=== PATIENT | male | born 1950 | race Caucasian/White ===

== ENCOUNTER → 2019-02-12 08:07 | Outpatient (CLI) | payer MEDICARE, OTHER, SELFPAY ==
[2019-02-12 08:58] LABS: Add Manual Diff / Slide Review NO; Basophils Absolute Auto 100 /uL (0-100); Eosinophils Absolute Auto 200 /uL (0-450); Hematocrit 44.7 % (41-53); Hemoglobin 15.4 g/dL (13.5-17.5); Lymphocytes Absolute Auto 1400 /uL (1100-4500); Lymphocytes Percent Auto 26.7 % (25-40); Mean Corpuscular HGB Conc 34.4 % (30-36); Mean Corpuscular Hemoglobin 29.8 PG (26-34); Mean Corpuscular Volume 86.5 fL (80-100); Monocytes Absolute Auto 700 /uL (0-900); Monocytes Percent Auto 12.4 % (3-14); Neutrophils Absolute Auto 3100 /uL (1500-7000); Neutrophils Percent Auto 56.9 % (50-75); Platelet Count 231 X10^3/uL (150-400); Red Blood Cell Count 5.17 X10^6/uL (4.5-5.9); Red Cell Distribution Width 13.4 % (11.6-14.8); White Blood Cell Count 5.4 X10^3/uL (4.5-11.0)
[2019-02-12 09:07] LABS: Alanine Aminotransferase 24 IU/L (21-72); Albumin 4.4 g/dL (3.5-5.0); Albumin Globulin Ratio 1.6 (1.0-2.8); Alkaline Phosphatase 93 U/L (38-126); Aspartate Aminotransferase 24 IU/L (17-59); BUN Creatinine Ratio 18.9 (6-22); Bilirubin Total 0.9 mg/dL (0.2-1.3); Blood Urea Nitrogen 17 mg/dL (9-20); Carbon Dioxide 27 mmol/L (22-32); Chloride 105 mmol/L (98-107); Cholesterol 189 mg/dL (140-199); Estimated Glomerular Filt Rate > 60.0 mL/min (>60); Globulin 2.7 g/dL (1.7-4.1); Glucose 89 mg/dL (80-110); HDL Cholesterol 33 mg/dL (40-60); HEMOLYSIS < 15 (0-50); LDL Cholesterol Calculated 142 mg/dL (<100); Potassium 4.3 mmol/L (3.4-5.1); Sodium 140 mmol/L (137-145); Total Protein 7.1 g/dL (6.3-8.2); Triglycerides 68 mg/dL (35-150)
[2019-02-12 09:36] LABS: Prostate Specific Antigen Scrn 3.51 ng/mL (0.1-4.0)
== END ==
PROVIDERS: PCP Family Medicine; Visit Provider Family Medicine
DX: E78.2 Mixed hyperlipidemia (principal); Z12.5 Encounter for screening for malignant neoplasm of prostate
CPT/HCPCS: 36415; 80053; 80061; 85025; G0103

== ENCOUNTER → 2019-09-18 15:03 | Outpatient (CLI) | payer MEDICARE, OTHER, SELFPAY ==
[2019-09-18 15:26] LABS: Hematocrit 44.3 % (41-53); Hemoglobin 15.2 g/dL (13.5-17.5); Mean Corpuscular HGB Conc 34.3 % (30-36); Mean Corpuscular Hemoglobin 29.3 PG (26-34); Mean Corpuscular Volume 85.5 fL (80-100); Platelet Count 248 X10^3/uL (150-400); Red Blood Cell Count 5.18 X10^6/uL (4.5-5.9); Red Cell Distribution Width 13.7 % (11.6-14.8)
[2019-09-18 15:37] LABS: D Dimer < 200 ng/mL (<230)
[2019-09-18 15:45] LABS: Blood Urea Nitrogen 18 mg/dL (9-20); Calcium 10.2 mg/dL (8.4-10.2); Carbon Dioxide 28 mmol/L (22-32); Chloride 105 mmol/L (98-107); Estimated Glomerular Filt Rate > 60.0 mL/min (>60); Glucose 100 mg/dL (80-110); HEMOLYSIS < 15 (0-50); Potassium 4.1 mmol/L (3.4-5.1); Sodium 140 mmol/L (137-145)
[2019-09-18 15:57] LABS: Troponin I < 0.012 ng/mL (0.01-0.034)
== END ==
PROVIDERS: Family Provider Family Medicine; PCP Family Medicine; Visit Provider Student in an Organized Health Care Education/Training Program
DX: R07.9 Chest pain, unspecified (principal)
CPT/HCPCS: 36415; 80048; 84484; 85027; 85379

== ENCOUNTER → 2019-12-13 13:26 | Outpatient (CLI) | payer MEDICARE, OTHER, SELFPAY ==
--- NOTE | 2019-12-13 13:28 | DI.RAD.S_ITS ---
PROCEDURE: XR CHEST 2V INDICATIONS: Cough 1 month TECHNIQUE: 2 views of the chest were acquired. COMPARISON: None. FINDINGS: Surgical changes and devices: None. Lungs and pleura: Lungs are clear. No pleural effusions or pneumothorax. Mediastinum: Mediastinal contours are normal. Heart size is normal. Bones and chest wall: No suspicious bony abnormalities. Soft tissues appear unremarkable. IMPRESSION: No acute pulmonary process. Dictated by: Adriana Monterroso M.D. on 12/13/2019 at 13:42 Approved by: Adriana Monterroso M.D. on 12/13/2019 at 13:59
== END ==
PROVIDERS: Family Provider Family Medicine; PCP Family Medicine; Referring Provider Family Medicine; Visit Provider Family Medicine
DX: R05 Cough (principal); Z87.891 Personal history of nicotine dependence
CPT/HCPCS: 71046

== ENCOUNTER → 2020-06-03 07:21 | Outpatient (CLI) | payer MEDICARE, OTHER, SELFPAY ==
[2020-06-03 09:06] LABS: Add Manual Diff / Slide Review NO; Basophils Absolute Auto 0 /uL (0-100); Basophils Percent Auto 0.8 % (0-2); Eosinophils Absolute Auto 100 /uL (0-450); Eosinophils Percent Auto 2.3 % (2-4); Hematocrit 46.3 % (41-53); Hemoglobin 15.8 g/dL (13.5-17.5); Lymphocytes Absolute Auto 1600 /uL (1100-4500); Lymphocytes Percent Auto 31.5 % (25-40); Mean Corpuscular HGB Conc 34.2 % (30-36); Mean Corpuscular Hemoglobin 29.4 PG (26-34); Monocytes Absolute Auto 600 /uL (0-900); Monocytes Percent Auto 11.4 % (3-14); Neutrophils Absolute Auto 2800 /uL (1500-7000); Platelet Count 239 X10^3/uL (150-400); Red Blood Cell Count 5.39 X10^6/uL (4.5-5.9); Red Cell Distribution Width 13.6 % (11.6-14.8); White Blood Cell Count 5.2 X10^3/uL (4.5-11.0)
[2020-06-03 09:26] LABS: Alanine Aminotransferase 37 IU/L (<50); Albumin 4.4 g/dL (3.5-5.0); Albumin Globulin Ratio 1.5 (1.0-2.8); Alkaline Phosphatase 83 U/L (38-126); Aspartate Aminotransferase 36 IU/L (17-59); BUN Creatinine Ratio 16.8 (6-22); Bilirubin Total 0.9 mg/dL (0.2-1.3); Blood Urea Nitrogen 17 mg/dL (9-20); Calcium 9.9 mg/dL (8.4-10.2); Carbon Dioxide 28 mmol/L (22-32); Chloride 103 mmol/L (98-107); Cholesterol 220 mg/dL (140-199); Estimated Glomerular Filt Rate > 60.0 mL/min (>60); Glucose 89 mg/dL (80-110); HDL Cholesterol 42 mg/dL (40-60); HEMOLYSIS < 15 (0-50); LDL Cholesterol Calculated 155 mg/dL (<100); Potassium 4.6 mmol/L (3.4-5.1); Sodium 140 mmol/L (137-145); Total Protein 7.4 g/dL (6.3-8.2); Triglycerides 115 mg/dL (35-150)
[2020-06-03 09:45] LABS: Thyroid Stimulating Hormone 0.877 uIU/mL (0.47-4.68)
== END ==
PROVIDERS: Family Provider Family Medicine; PCP Family Medicine; Referring Provider Family Medicine; Visit Provider Family Medicine
DX: L21.9 Seborrheic dermatitis, unspecified (principal); M19.90 Unspecified osteoarthritis, unspecified site; E78.5 Hyperlipidemia, unspecified
CPT/HCPCS: 36415; 80053; 80061; 84443; 85025

== ENCOUNTER → 2020-06-05 13:01 | Outpatient (CLI) | payer MEDICARE, OTHER, SELFPAY ==
[2020-06-08 08:10] LABS: Fecal Immunochemical Test Negative (Negative)
== END ==
PROVIDERS: Family Provider Family Medicine; PCP Family Medicine; Referring Provider Family Medicine; Visit Provider Family Medicine
DX: L21.9 Seborrheic dermatitis, unspecified (principal); M19.90 Unspecified osteoarthritis, unspecified site
CPT/HCPCS: 82274

== ENCOUNTER → 2020-06-09 08:32 | Outpatient (CLI) | payer MEDICARE, OTHER, SELFPAY | PROVIDERS: Family Provider Family Medicine; PCP Family Medicine; Referring Provider Family Medicine; Visit Provider Family Medicine | DX: Z12.5 Encounter for screening for malignant neoplasm of prostate (principal) | CPT/HCPCS: 36415; G0103 ==

== ENCOUNTER → 2021-06-07 07:33 | Outpatient (CLI) | payer MEDICARE, OTHER, SELFPAY ==
[2021-06-07 08:26] LABS: Add Manual Diff / Slide Review NO; Basophils Absolute Auto 100 /uL (0-100); Basophils Percent Auto 1.2 % (0-2); Eosinophils Absolute Auto 200 /uL (0-450); Eosinophils Percent Auto 4.4 % (2-4); Hemoglobin 15.8 g/dL (13.5-17.5); Lymphocytes Absolute Auto 1900 /uL (1100-4500); Lymphocytes Percent Auto 37.4 % (25-40); Mean Corpuscular HGB Conc 33.6 % (30-36); Mean Corpuscular Hemoglobin 29.7 PG (26-34); Mean Corpuscular Volume 88.3 fL (80-100); Monocytes Absolute Auto 500 /uL (0-900); Monocytes Percent Auto 10.5 % (3-14); Neutrophils Absolute Auto 2300 /uL (1500-7000); Neutrophils Percent Auto 46.5 % (50-75); Platelet Count 226 X10^3/uL (150-400); Red Blood Cell Count 5.33 X10^6/uL (4.5-5.9); Red Cell Distribution Width 14.1 % (11.6-14.8)
[2021-06-07 09:05] LABS: Alanine Aminotransferase 53 IU/L (<50); Albumin 4.5 g/dL (3.5-5.0); Albumin Globulin Ratio 1.6 (1.0-2.8); Alkaline Phosphatase 64 U/L (38-126); Aspartate Aminotransferase 39 IU/L (17-59); BUN Creatinine Ratio 22.1 (6-22); Bilirubin Total 0.6 mg/dL (0.2-1.3); Blood Urea Nitrogen 21 mg/dL (9-20); Calcium 9.9 mg/dL (8.4-10.2); Carbon Dioxide 28 mmol/L (22-32); Chloride 106 mmol/L (98-107); Cholesterol 233 mg/dL (140-199); Estimated Glomerular Filt Rate > 60.0 mL/min (>60); Globulin 2.8 g/dL (1.7-4.1); Glucose 100 mg/dL (80-110); HDL Cholesterol 48 mg/dL (40-60); HEMOLYSIS < 15 (0-50); LDL Cholesterol Calculated 168 mg/dL (<100); Potassium 4.8 mmol/L (3.4-5.1); Sodium 140 mmol/L (137-145); Total Protein 7.3 g/dL (6.3-8.2); Triglycerides 83 mg/dL (35-150)
[2021-06-07 09:27] LABS: TSH w/ Reflex to FT4 1.17 uIU/mL (0.47-4.68)
[2021-06-07 09:28] LABS: Prostate Specific Antigen Scrn 3.67 ng/mL (0.1-4.0)
[2021-06-08 10:29] LABS: Fecal Immunochemical Test Negative (Negative)
== END ==
PROVIDERS: Family Provider Family Medicine; PCP Family Medicine; Referring Provider Family Medicine; Visit Provider Family Medicine
DX: E78.2 Mixed hyperlipidemia (principal); Z12.5 Encounter for screening for malignant neoplasm of prostate; Z13.29 Encounter for screening for other suspected endocrine disorder; Z12.11 Encounter for screening for malignant neoplasm of colon
CPT/HCPCS: 36415; 80053; 80061; 82274; 84443; 85025; G0103

== ENCOUNTER → 2021-06-16 09:35 | Outpatient (CLI) | payer MEDICARE, OTHER, SELFPAY ==
--- NOTE | 2021-06-16 09:40 | DI.RAD.S_ITS ---
PROCEDURE: XR KNEE LT 3V INDICATIONS: bilateral shoulder pain and left knee pain TECHNIQUE: 3 views of the knee were acquired. COMPARISON: None. FINDINGS: Bones: No fractures or dislocations. No suspicious bony lesions. Moderate femoral-tibial joint space narrowing. Soft tissues: No joint effusion. No suspicious soft tissue calcifications. IMPRESSION: Moderate joint space narrowing without fracture or joint effusion Approved by: Chidi Millan M.D. on 06/16/2021 at 10:57
--- NOTE | 2021-06-16 09:40 | DI.RAD.S_ITS ---
PROCEDURE: XR SHOULDER LT MIN 2V INDICATIONS: bilateral shoulder pain and left knee pain TECHNIQUE: 3 views of the shoulder were acquired. COMPARISON: None. FINDINGS: Bones: No fractures or dislocations. No suspicious bony lesions. Visualized ribs appear intact. Soft tissues: No suspicious soft tissue calcifications. IMPRESSION: Unremarkable left shoulder radiographs Approved by: Chidi Millan M.D. on 06/16/2021 at 11:00
--- NOTE | 2021-06-16 09:40 | DI.RAD.S_ITS ---
PROCEDURE: XR SHOULDER RT MIN 2V INDICATIONS: bilateral shoulder pain and left knee pain TECHNIQUE: 3 views of the shoulder were acquired. COMPARISON: None. FINDINGS: Bones: No fractures or dislocations. No suspicious bony lesions. Visualized ribs appear intact. Soft tissues: No suspicious soft tissue calcifications. IMPRESSION: Unremarkable right shoulder radiographs Approved by: Chidi Millan M.D. on 06/16/2021 at 11:05
== END ==
PROVIDERS: Family Provider Family Medicine; PCP Family Medicine; Referring Provider Family Medicine; Visit Provider Family Medicine
DX: M19.91 Primary osteoarthritis, unspecified site (principal); M25.511 Pain in right shoulder; M25.512 Pain in left shoulder; M25.562 Pain in left knee
CPT/HCPCS: 73030; 73562

== ENCOUNTER 2021-08-17 12:15 | Outpatient (RCR) | payer MEDICARE, OTHER, SELFPAY ==
--- NOTE | 2021-06-30 16:03 | PT.OIE ---
Current Diagnoses Pain in right shoulder (06/30/21) Pain in left shoulder (06/30/21) Past Medical History (Last Updated 06/16/21 @ 09:12 by Warner Guzman MD) Bilateral shoulder pain Hyperlipidemia Past Surgical History (Last Reviewed 08/19/20 @ 09:52 by Warner Guzman MD) History of tonsillectomy Visit Care Team Role Provider Type Warner Guzman MD Attending Provider Physician Family Provider Primary Care Provider Referring Provider Specialty: Family Practice Address: [address] [place] [address], [facility] Email: [email or web address] Physical Therapy Initial Evaluation PT-OP-A Visit Information Start: 06/28/21 14:12 Freq: Status: Active Protocol: Document 06/30/21 13:00 MB (Rec: 06/30/21 13:10 MB [id number]) Out-Patient Physical Therapy Visit Information Visit Information Visit Type Initial Evaluation Visit Note Medicare 09/29 before KX Visit Start Time 13:00 Visit Stop Time 13:34 Total Visit Minutes 34 Visit Number 1 PT-OP-B Current Condition Start: 06/28/21 14:12 Freq: Status: Active Protocol: Document 06/30/21 13:00 MB (Rec: 06/30/21 13:10 MB [id number]) Current Condition History of Current Condition Onset Date 1978 Current Complaints Pain at night and pain with some movements History of Current Condition Pt reports that in 1978, he was on his back working his triceps with free weights up to 30-40 lbs and lost control. He has had B shoulder pain on and off since that time. He never had good rehab. In the past 5-10 years, it has gotten worse. He started AROM and free weight press ups in 2019 and he got increased pain . Lifting, reaching behind his back, putting on a shirt all increase pain. The pain wakes him up at night. He has been taking Naproxen each night. It seems to work until the wee hours. When the pain wakes him up, he can put his arm up and the pain goes away so he can fall back asleep. He is having more pain in the left shoulder. He has pain in the superolateral joint area and down lateral deltoid area. He has has never had PT in the past. Pt is sleeping on his side and back. He sleeps with and dog. He has one pillow under his head. Pt denies paresthesias. Pt is concerned about restoring muscle mass as he noticed trouble stepping off a curb. Treatment Goals Patient/Caregiver Goals To decrease pain and get a exercise for arms PT-OP-C Subjective Start: 06/28/21 14:12 Freq: Status: Active Protocol: Document 06/30/21 13:00 MB (Rec: 06/30/21 13:10 MB [id number]) OP-PT Subjective Patient Comments Patient Comments See history of current condition. Patient Questionnaires Quick Dash- Upper Extremity Quick Dash UE Score 16 Quick Dash UE Impairment 1 to 19% Impaired (Score 1-19) PT-OP-J Posture/Palpation/Skin Start: 06/28/21 14:12 Freq: Status: Active Protocol: Document 06/30/21 13:00 MB (Rec: 06/30/21 16:03 MB [id number]) Posture Evaluation Comments Posture Comments Standing posture: decreased cervical lordosis, increased lower thoracic kyphosis with convexity to the left, Dowager 's hump, stiffness through pelvis, left shoulder higher than the right and pt is right handed, right iliac crest 1/2 higher than the left. PT-OP-K Range of Motion Start: 06/28/21 14:12 Freq: Status: Active Protocol: Document 06/30/21 13:00 MB (Rec: 06/30/21 16:03 MB [id number]) Cervical Spine Range of Motion Cervical Spine Active Testing Position Standing Flexion 33 Extension 24 Rotation Left 70 Rotation Right 53 Comments Pt's resting posture is with head in 4 deg right SB Shoulder Goniometric Range of Motion Shoulder Left Comments AROM B shoulder flexion and abduction approximately 140 deg PROM in supine with shoulder in 70 deg abduction is: ER 70 deg and IR 40 deg Right Comments AROM B shoulder flexion and abduction approximately 140 deg Supine ER/IR PROM with shoulder in 90/90: right is normal PT-OP-M Strength Start: 06/28/21 14:12 Freq: Status: Active Protocol: Document 06/30/21 13:00 MB (Rec: 06/30/21 16:03 MB [id number]) Shoulder Strength Shoulder Manual Muscle Testing Left External Rotation 3- Fair- Internal Rotation 5 Normal Comments Flexion and abduction deferred d/t fear of pain with MMT and active abduction. Pt is fearful/guarded about ER MMT Right External Rotation 3- Fair- Internal Rotation 5 Normal Comments Flexion and abduction deferred d/t fear of pain with MMT and active abduction. Pt is fearful/guarded about ER MMT Elbow/Forearm Strength Elbow and Forearm Manual Muscle Testing Left Flexion (C6) 5 Normal Extension (C7) 5 Normal Pronation 5 Normal Supination 4 Good Right Flexion (C6) 5 Normal Extension (C7) 5 Normal Pronation 5 Normal Supination 5 Normal Wrist Strength Wrist Manual Muscle Testing Left Flexion (C7) 4 Good Extension (C6) 4 Good Right Flexion (C7) 5 Normal Extension (C6) 5 Normal PT-OP-Q Treatments Start: 06/28/21 14:12 Freq: Status: Active Protocol: Document 06/30/21 13:00 MB (Rec: 06/30/21 15:48 MB [id number]) Self-Care/Home Management Treatment Education Patient Education Body Mechanics,Home Exercise Program,Posture Other Education PT ed pt in benefits of using towel roll for cervical support and to unweight shoulders when sleeping, ed pt in benefits of sitting upright and pillow support behind back and on lap for when he uses laptop on couch, benefits of trying his large ball for thoracic massage against the wall PT-OP-T Assessment and Plan Start: 06/28/21 14:12 Freq: Status: Active Protocol: Document 06/30/21 13:00 MB (Rec: 06/30/21 16:03 MB [id number]) Physical Therapy Assessment Rehab Potential Rehabilitation Potential Fair Evaluation Complexity Number of Personal Factors/Comorbidities 1-2 Number of Body Systems Impaired 1-2 Clinical Presentation at Evaluation Evolving Impairments Impairments Activity Tolerance,Functional Activities,Pain,Posture,ROM, Soft Tissue Mobility,Strength Other Impairments Personal factors include chronicity of symptoms ( greater than 40 years) and guarding tendencies. Goals 3 Assisted Goal (LTG) Pt will perform progressive HEP with I including postural exercises, pelvic realignment, balance, flexibility and shoulder, core and intrascapular strengthening to improve pain and strength by 08/30/21. LTG Duration 8 weeks 2 Orthopaedic Surgeon Goal (LTG) Pt will report a 50% improvement in pain, especially with sleeping pain, to improve recovery and quality of life by 08/30/21 LTG Duration 8 weeks 1 Assisted Goal (LTG) Pt will present with improved B shoulder flexion, abduction and ER strength to at least 4/ 5 with MMT to improve functional use of arms by . LTG Duration 8 weeks Assessment Summary Assessment Pt is a 70 y/o male presenting with chronic B shoulder pain greater than 40 years after a free weight injury. He presents with guarded active abduction and MMT with reports of pain with ER testing. 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 PT suspects old rotator cuff injuries and degenerative changes. He has never had physical therapy and he may really benefit from postural, pelvic alignment, flexibility and strengthening training and manual intervention. Barriers to PT include chronicity of symptoms and guarding behaviors. Physical Therapy Plan Frequency and Duration Frequency of Treatment 2x/Week Duration of Treatment 8 weeks Plan of Care Start Date 06/30/21 Plan of Care End Date 08/30/21 Therapeutic Interventions Therapeutic Interventions Aquatic Therapy,Balance Training,Canalithic Repositioning,Coordination Training,Home Exercise Program ,Joint Mobilizations,Manual Therapy,Neuromuscular Re- education,Patient/Caregiver Education,Self-Care/Home Management,Soft Tissue Mobilization,Taping, Therapeutic Activities, Therapeutic Exercises Modalities Cold Pack/Ice Massage,Hot Packs Next Visit Focus/Plan Next Note Type Treatment Note Next Visit Plan Pelvic realignment exercises, thoracic mobility exercises
--- NOTE | 2021-06-30 16:03 | PT.OPPOC ---
Physical, Occupational & Speech Therapy At [facility] Current Diagnoses Pain in right shoulder (06/30/21) Pain in left shoulder (06/30/21) Visit Care Team Role Provider Type Warner Guzman MD Attending Provider Physician Family Provider Primary Care Provider Referring Provider Specialty: Family Practice Address: [address] [place] [address], [facility] Email: [email or web address] Plan Of Care PT-OP-T Assessment and Plan Start: 06/28/21 14:12 Freq: Status: Active Protocol: Document 06/30/21 13:00 MB (Rec: 06/30/21 16:03 MB [id number]) Physical Therapy Assessment Rehab Potential Rehabilitation Potential Fair Evaluation Complexity Number of Personal Factors/Comorbidities 1-2 Number of Body Systems Impaired 1-2 Clinical Presentation at Evaluation Evolving Impairments Impairments Activity Tolerance,Functional Activities,Pain,Posture,ROM, Soft Tissue Mobility,Strength Other Impairments Personal factors include chronicity of symptoms ( greater than 40 years) and guarding tendencies. Goals 3 Senior Care Goal (LTG) Pt will perform progressive HEP with I including postural exercises, pelvic realignment, balance, flexibility and shoulder, core and intrascapular strengthening to improve pain and strength by 08/30/21. LTG Duration 8 weeks 2 Process Inspector Goal (LTG) Pt will report a 50% improvement in pain, especially with sleeping pain, to improve recovery and quality of life by 08/30/21 LTG Duration 8 weeks 1 Process Inspector Goal (LTG) Pt will present with improved B shoulder flexion, abduction and ER strength to at least 4/ 5 with MMT to improve functional use of arms by . LTG Duration 8 weeks Assessment Summary Assessment Pt is a 70 y/o male presenting with chronic B shoulder pain greater than 40 years after a free weight injury. He presents with guarded active abduction and MMT with reports of pain with ER testing. 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 PT suspects old rotator cuff injuries and degenerative changes. He has never had physical therapy and he may really benefit from postural, pelvic alignment, flexibility and strengthening training and manual intervention. Barriers to PT include chronicity of symptoms and guarding behaviors. Physical Therapy Plan Frequency and Duration Frequency of Treatment 2x/Week Duration of Treatment 8 weeks Plan of Care Start Date 06/30/21 Plan of Care End Date 08/30/21 Therapeutic Interventions Therapeutic Interventions Aquatic Therapy,Balance Training,Canalithic Repositioning,Coordination Training,Home Exercise Program ,Joint Mobilizations,Manual Therapy,Neuromuscular Re- education,Patient/Caregiver Education,Self-Care/Home Management,Soft Tissue Mobilization,Taping, Therapeutic Activities, Therapeutic Exercises Modalities Cold Pack/Ice Massage,Hot Packs Next Visit Focus/Plan Next Note Type Treatment Note Next Visit Plan Pelvic realignment exercises, thoracic mobility exercises Plan of Care Dates Plan of Care Start Date 06/30/21 Plan of Care End Date 08/30/21 Electronically Signed by: Elisa Roca, PT 06/30/21 [id number] Please Sign and Return: I have reviewed this Plan of Care and certify that the skilled therapy services above are required to meet the patient?s needs. Physician Signature Date Printed Name and Credentials Clinical Instructor Signature Printed Name and Credentials
--- NOTE | 2021-07-06 12:56 | PT.OTN ---
Current Diagnoses Pain in right shoulder (07/06/21) Pain in left shoulder (07/06/21) Physical Therapy Treatment Note PT-OP-A Visit Information Start: 06/28/21 14:12 Freq: Status: Active Protocol: Document 07/06/21 12:15 MB (Rec: 07/06/21 12:53 MB [id number]) Out-Patient Physical Therapy Visit Information Visit Information Visit Type Treatment Note Visit Note Medicare 10/30 before KX Visit Start Time 12:15 Visit Stop Time 12:55 Total Visit Minutes 40 Visit Number 2 PT-OP-B Current Condition Start: 06/28/21 14:12 Freq: Status: Active Protocol: Document 06/30/21 13:00 MB (Rec: 06/30/21 13:10 MB [id number]) Current Condition History of Current Condition Onset Date 1978 Current Complaints Pain at night and pain with some movements History of Current Condition Pt reports that in 1978, he was on his back working his triceps with free weights up to 30-40 lbs and lost control. He has had B shoulder pain on and off since that time. He never had good rehab. In the past 5-10 years, it has gotten worse. He started AROM and free weight press ups in 2019 and he got increased pain . Lifting, reaching behind his back, putting on a shirt all increase pain. The pain wakes him up at night. He has been taking Naproxen each night. It seems to work until the wee hours. When the pain wakes him up, he can put his arm up and the pain goes away so he can fall back asleep. He is having more pain in the left shoulder. He has pain in the superolateral joint area and down lateral deltoid area. He has has never had PT in the past. Pt is sleeping on his side and back. He sleeps with and dog. He has one pillow under his head. Pt denies paresthesias. Pt is concerned about restoring muscle mass as he noticed trouble stepping off a curb. Treatment Goals Patient/Caregiver Goals To decrease pain and get a exercise for arms PT-OP-C Subjective Start: 06/28/21 14:12 Freq: Status: Active Protocol: Document 07/06/21 12:15 MB (Rec: 07/06/21 12:53 MB [id number]) OP-PT Subjective Patient Comments Patient Comments Pt has no new reports. Yesterday, he mowed the lawn with self-propelled push mower . He had to do some pulling. He did well with it. PT-OP-J Posture/Palpation/Skin Start: 06/28/21 14:12 Freq: Status: Active Protocol: Document 06/30/21 13:00 MB (Rec: 06/30/21 16:03 MB [id number]) Posture Evaluation Comments Posture Comments Standing posture: decreased cervical lordosis, increased lower thoracic kyphosis with convexity to the left, Dowager 's hump, stiffness through pelvis, left shoulder higher than the right and pt is right handed, right iliac crest 1/2 higher than the left. PT-OP-K Range of Motion Start: 06/28/21 14:12 Freq: Status: Active Protocol: Document 06/30/21 13:00 MB (Rec: 06/30/21 16:03 MB [id number]) Cervical Spine Range of Motion Cervical Spine Active Testing Position Standing Flexion 33 Extension 24 Rotation Left 70 Rotation Right 53 Comments Pt's resting posture is with head in 4 deg right SB Shoulder Goniometric Range of Motion Shoulder Left Comments AROM B shoulder flexion and abduction approximately 140 deg PROM in supine with shoulder in 70 deg abduction is: ER 70 deg and IR 40 deg Right Comments AROM B shoulder flexion and abduction approximately 140 deg Supine ER/IR PROM with shoulder in 90/90: right is normal PT-OP-M Strength Start: 06/28/21 14:12 Freq: Status: Active Protocol: Document 06/30/21 13:00 MB (Rec: 06/30/21 16:03 MB [id number]) Shoulder Strength Shoulder Manual Muscle Testing Left External Rotation 3- Fair- Internal Rotation 5 Normal Comments Flexion and abduction deferred d/t fear of pain with MMT and active abduction. Pt is fearful/guarded about ER MMT Right External Rotation 3- Fair- Internal Rotation 5 Normal Comments Flexion and abduction deferred d/t fear of pain with MMT and active abduction. Pt is fearful/guarded about ER MMT Elbow/Forearm Strength Elbow and Forearm Manual Muscle Testing Left Flexion (C6) 5 Normal Extension (C7) 5 Normal Pronation 5 Normal Supination 4 Good Right Flexion (C6) 5 Normal Extension (C7) 5 Normal Pronation 5 Normal Supination 5 Normal Wrist Strength Wrist Manual Muscle Testing Left Flexion (C7) 4 Good Extension (C6) 4 Good Right Flexion (C7) 5 Normal Extension (C6) 5 Normal PT-OP-Q Treatments Start: 06/28/21 14:12 Freq: Status: Active Protocol: Document 07/06/21 12:15 MB (Rec: 07/06/21 12:53 MB [id number]) Cardio Equipment Upper Body Ergometer (UBE) Duration (Minutes) 10 Other 1' forward and 1' backward Therapeutic Exercises Supine Exercises Pelvic realignment exercises Side bilateral Comments 5 reps, 3 sec hold all exercises Sitting Exercises Thoracic rotation Comments Bilateral, end-range deep breathing and rib movement, many reps each side Standing Exercises Racquet ball massage Comments B intrascapular STM, infraspinatus MWM PT-OP-T Assessment and Plan Start: 06/28/21 14:12 Freq: Status: Active Protocol: Document 07/06/21 12:15 MB (Rec: 07/06/21 12:53 MB [id number]) Physical Therapy Assessment Rehab Potential Rehabilitation Potential Fair Evaluation Complexity Number of Personal Factors/Comorbidities 1-2 Number of Body Systems Impaired 1-2 Clinical Presentation at Evaluation Evolving Impairments Impairments Activity Tolerance,Functional Activities,Pain,Posture,ROM, Soft Tissue Mobility,Strength Other Impairments Personal factors include chronicity of symptoms ( greater than 40 years) and guarding tendencies. Goals 3 Longterm Goal (LTG) Pt will perform progressive HEP with I including postural exercises, pelvic realignment, balance, flexibility and shoulder, core and intrascapular strengthening to improve pain and strength by 08/30/21. LTG Duration 8 weeks 2 Longterm Goal (LTG) Pt will report a 50% improvement in pain, especially with sleeping pain, to improve recovery and quality of life by 08/30/21 LTG Duration 8 weeks 1 Steward/Stewardess Third Class Goal (LTG) Pt will present with improved B shoulder flexion, abduction and ER strength to at least 4/ 5 with MMT to improve functional use of arms by . LTG Duration 8 weeks Assessment Summary Assessment Initiated strengthening via UBE and flexibility exercises today. Pelvic realignment to help with posture. Pt performs well. Con't progression as listed in plan below. Physical Therapy Plan Frequency and Duration Frequency of Treatment 2x/Week Duration of Treatment 8 weeks Plan of Care Start Date 06/30/21 Plan of Care End Date 08/30/21 Therapeutic Interventions Therapeutic Interventions Aquatic Therapy,Balance Training,Canalithic Repositioning,Coordination Training,Home Exercise Program ,Joint Mobilizations,Manual Therapy,Neuromuscular Re- education,Patient/Caregiver Education,Self-Care/Home Management,Soft Tissue Mobilization,Taping, Therapeutic Activities, Therapeutic Exercises Modalities Cold Pack/Ice Massage,Hot Packs Next Visit Focus/Plan Next Note Type Treatment Note Next Visit Plan Try out pool noodle, spine flat and core tight, pect stretch, etc Open book and QL stretch (if shoulder can tolerate)
--- NOTE | 2021-07-09 13:01 | PT.OTN ---
Current Diagnoses Pain in right shoulder (07/09/21) Pain in left shoulder (07/09/21) Physical Therapy Treatment Note PT-OP-A Visit Information Start: 06/28/21 14:12 Freq: Status: Active Protocol: Document 07/09/21 12:16 MB (Rec: 07/09/21 13:01 MB [id number]) Out-Patient Physical Therapy Visit Information Visit Information Visit Type Treatment Note Visit Note Medicare 11/27 before KX Visit Start Time 12:16 Visit Stop Time 13:00 Total Visit Minutes 44 Visit Number 3 PT-OP-B Current Condition Start: 06/28/21 14:12 Freq: Status: Active Protocol: Document 06/30/21 13:00 MB (Rec: 06/30/21 13:10 MB [id number]) Current Condition History of Current Condition Onset Date 1978 Current Complaints Pain at night and pain with some movements History of Current Condition Pt reports that in 1978, he was on his back working his triceps with free weights up to 30-40 lbs and lost control. He has had B shoulder pain on and off since that time. He never had good rehab. In the past 5-10 years, it has gotten worse. He started AROM and free weight press ups in 2019 and he got increased pain . Lifting, reaching behind his back, putting on a shirt all increase pain. The pain wakes him up at night. He has been taking Naproxen each night. It seems to work until the wee hours. When the pain wakes him up, he can put his arm up and the pain goes away so he can fall back asleep. He is having more pain in the left shoulder. He has pain in the superolateral joint area and down lateral deltoid area. He has has never had PT in the past. Pt is sleeping on his side and back. He sleeps with and dog. He has one pillow under his head. Pt denies paresthesias. Pt is concerned about restoring muscle mass as he noticed trouble stepping off a curb. Treatment Goals Patient/Caregiver Goals To decrease pain and get a exercise for arms PT-OP-C Subjective Start: 06/28/21 14:12 Freq: Status: Active Protocol: Document 07/09/21 12:16 MB (Rec: 07/09/21 13:01 MB [id number]) OP-PT Subjective Patient Comments Patient Comments Pt thinks that the pain is a little less. The racquet ball may be helpful. He is taking Naproxen every night before the bed. PT-OP-J Posture/Palpation/Skin Start: 06/28/21 14:12 Freq: Status: Active Protocol: Document 06/30/21 13:00 MB (Rec: 06/30/21 16:03 MB [id number]) Posture Evaluation Comments Posture Comments Standing posture: decreased cervical lordosis, increased lower thoracic kyphosis with convexity to the left, Dowager 's hump, stiffness through pelvis, left shoulder higher than the right and pt is right handed, right iliac crest 1/2 higher than the left. PT-OP-K Range of Motion Start: 06/28/21 14:12 Freq: Status: Active Protocol: Document 06/30/21 13:00 MB (Rec: 06/30/21 16:03 MB [id number]) Cervical Spine Range of Motion Cervical Spine Active Testing Position Standing Flexion 33 Extension 24 Rotation Left 70 Rotation Right 53 Comments Pt's resting posture is with head in 4 deg right SB Shoulder Goniometric Range of Motion Shoulder Left Comments AROM B shoulder flexion and abduction approximately 140 deg PROM in supine with shoulder in 70 deg abduction is: ER 70 deg and IR 40 deg Right Comments AROM B shoulder flexion and abduction approximately 140 deg Supine ER/IR PROM with shoulder in 90/90: right is normal PT-OP-M Strength Start: 06/28/21 14:12 Freq: Status: Active Protocol: Document 06/30/21 13:00 MB (Rec: 06/30/21 16:03 MB [id number]) Shoulder Strength Shoulder Manual Muscle Testing Left External Rotation 3- Fair- Internal Rotation 5 Normal Comments Flexion and abduction deferred d/t fear of pain with MMT and active abduction. Pt is fearful/guarded about ER MMT Right External Rotation 3- Fair- Internal Rotation 5 Normal Comments Flexion and abduction deferred d/t fear of pain with MMT and active abduction. Pt is fearful/guarded about ER MMT Elbow/Forearm Strength Elbow and Forearm Manual Muscle Testing Left Flexion (C6) 5 Normal Extension (C7) 5 Normal Pronation 5 Normal Supination 4 Good Right Flexion (C6) 5 Normal Extension (C7) 5 Normal Pronation 5 Normal Supination 5 Normal Wrist Strength Wrist Manual Muscle Testing Left Flexion (C7) 4 Good Extension (C6) 4 Good Right Flexion (C7) 5 Normal Extension (C6) 5 Normal PT-OP-Q Treatments Start: 06/28/21 14:12 Freq: Status: Active Protocol: Document 07/09/21 12:16 MB (Rec: 07/09/21 13:01 MB [id number]) Cardio Equipment Upper Body Ergometer (UBE) Duration (Minutes) 10 Other 1' forward and 1' backward Therapeutic Exercises Supine Exercises Pool noodle Equipment Used Purple pool noodle Comments 10 reps AROM flexion, Ts and half xs, pect stretch 30 sec Sidelying Exercises Open book Side bilateral Comments 5 reps with coordinated breathing Manual Therapy Treatment Other Other Manual Treatments Initiated manual work today: left greater than right pect STM and left first rib isometric PT-OP-T Assessment and Plan Start: 06/28/21 14:12 Freq: Status: Active Protocol: Document 07/09/21 12:16 MB (Rec: 07/09/21 13:01 MB [id number]) Physical Therapy Assessment Rehab Potential Rehabilitation Potential Fair Evaluation Complexity Number of Personal Factors/Comorbidities 1-2 Number of Body Systems Impaired 1-2 Clinical Presentation at Evaluation Evolving Impairments Impairments Activity Tolerance,Functional Activities,Pain,Posture,ROM, Soft Tissue Mobility,Strength Other Impairments Personal factors include chronicity of symptoms ( greater than 40 years) and guarding tendencies. Goals 3 Supervisor Telephone Information Goal (LTG) Pt will perform progressive HEP with I including postural exercises, pelvic realignment, balance, flexibility and shoulder, core and intrascapular strengthening to improve pain and strength by 08/30/21. LTG Duration 8 weeks 2 Skilled Nursing Goal (LTG) Pt will report a 50% improvement in pain, especially with sleeping pain, to improve recovery and quality of life by 08/30/21 LTG Duration 8 weeks 1 Supervisor Telephone Information Goal (LTG) Pt will present with improved B shoulder flexion, abduction and ER strength to at least 4/ 5 with MMT to improve functional use of arms by . LTG Duration 8 weeks Assessment Summary Assessment Progressed exercises over the pool noodle today and initiated manual work. Con't progression per below. Physical Therapy Plan Frequency and Duration Frequency of Treatment 2x/Week Duration of Treatment 8 weeks Plan of Care Start Date 06/30/21 Plan of Care End Date 08/30/21 Therapeutic Interventions Therapeutic Interventions Aquatic Therapy,Balance Training,Canalithic Repositioning,Coordination Training,Home Exercise Program ,Joint Mobilizations,Manual Therapy,Neuromuscular Re- education,Patient/Caregiver Education,Self-Care/Home Management,Soft Tissue Mobilization,Taping, Therapeutic Activities, Therapeutic Exercises Modalities Cold Pack/Ice Massage,Hot Packs Next Visit Focus/Plan Next Note Type Treatment Note Next Visit Plan UBE, progress strengthening with theraband while lying on pool noodle. Eventually, body blade, core progression, wall slide for LE strengthening and balance
--- NOTE | 2021-07-12 13:00 | PT.OTN ---
Addendum entered and electronically signed by Sherry Hidalgo PTA 07/12/21 13:55: JUDI Keller assisted [employer] with education on ther ex during tx, supervised by MARILIA Powell throughout tx. Original Note: Current Diagnoses Pain in right shoulder (07/12/21) Pain in left shoulder (07/12/21) Physical Therapy Treatment Note PT-OP-A Visit Information Start: 06/28/21 14:12 Freq: Status: Active Protocol: Document 07/12/21 12:22 SP (Rec: 07/12/21 13:03 SP [id number]) Out-Patient Physical Therapy Visit Information Visit Information Visit Type Treatment Note Visit Note Medicare 12/28 before KX Visit Start Time 12:16 Visit Stop Time 13:00 Total Visit Minutes 44 Visit Number 4 Number of NEWSP[employer]ER [employer]BS[employer] SOLICITOR Visits 1 PT-OP-B Current Condition Start: 06/28/21 14:12 Freq: Status: Active Protocol: Document 06/30/21 13:00 MB (Rec: 06/30/21 13:10 MB [id number]) Current Condition History of Current Condition Onset Date 1978 Current Complaints Pain at night and pain with some movements History of Current Condition Pt reports that in 1978, he was on his back working his triceps with free weights up to 30-40 lbs and lost control. He has had B shoulder pain on and off since that time. He never had good rehab. In the past 5-10 years, it has gotten worse. He started AROM and free weight press ups in 2019 and he got increased pain . Lifting, reaching behind his back, putting on a shirt all increase pain. The pain wakes him up at night. He has been taking Naproxen each night. It seems to work until the wee hours. When the pain wakes him up, he can put his arm up and the pain goes away so he can fall back asleep. He is having more pain in the left shoulder. He has pain in the superolateral joint area and down lateral deltoid area. He has has never had PT in the past. Pt is sleeping on his side and back. He sleeps with and dog. He has one pillow under his head. Pt denies paresthesias. Pt is concerned about restoring muscle mass as he noticed trouble stepping off a curb. Treatment Goals Patient/Caregiver Goals To decrease pain and get a exercise for arms PT-OP-C Subjective Start: 06/28/21 14:12 Freq: Status: Active Protocol: Document 07/12/21 12:22 SP (Rec: 07/12/21 13:03 SP [id number]) OP-PT Subjective Patient Comments Patient Comments Pt. indicated that there hasn' t been any change since last tx. Pt also said that he has not been doing his exercises consistently the past few days . Pt. said he is continuing to take Naproxen every night. PT-OP-J Posture/Palpation/Skin Start: 06/28/21 14:12 Freq: Status: Active Protocol: Document 06/30/21 13:00 MB (Rec: 06/30/21 16:03 MB [id number]) Posture Evaluation Comments Posture Comments Standing posture: decreased cervical lordosis, increased lower thoracic kyphosis with convexity to the left, Dowager 's hump, stiffness through pelvis, left shoulder higher than the right and pt is right handed, right iliac crest 1/2 higher than the left. PT-OP-K Range of Motion Start: 06/28/21 14:12 Freq: Status: Active Protocol: Document 06/30/21 13:00 MB (Rec: 06/30/21 16:03 MB [id number]) Cervical Spine Range of Motion Cervical Spine Active Testing Position Standing Flexion 33 Extension 24 Rotation Left 70 Rotation Right 53 Comments Pt's resting posture is with head in 4 deg right SB Shoulder Goniometric Range of Motion Shoulder Left Comments AROM B shoulder flexion and abduction approximately 140 deg PROM in supine with shoulder in 70 deg abduction is: ER 70 deg and IR 40 deg Right Comments AROM B shoulder flexion and abduction approximately 140 deg Supine ER/IR PROM with shoulder in 90/90: right is normal PT-OP-M Strength Start: 06/28/21 14:12 Freq: Status: Active Protocol: Document 06/30/21 13:00 MB (Rec: 06/30/21 16:03 MB [id number]) Shoulder Strength Shoulder Manual Muscle Testing Left External Rotation 3- Fair- Internal Rotation 5 Normal Comments Flexion and abduction deferred d/t fear of pain with MMT and active abduction. Pt is fearful/guarded about ER MMT Right External Rotation 3- Fair- Internal Rotation 5 Normal Comments Flexion and abduction deferred d/t fear of pain with MMT and active abduction. Pt is fearful/guarded about ER MMT Elbow/Forearm Strength Elbow and Forearm Manual Muscle Testing Left Flexion (C6) 5 Normal Extension (C7) 5 Normal Pronation 5 Normal Supination 4 Good Right Flexion (C6) 5 Normal Extension (C7) 5 Normal Pronation 5 Normal Supination 5 Normal Wrist Strength Wrist Manual Muscle Testing Left Flexion (C7) 4 Good Extension (C6) 4 Good Right Flexion (C7) 5 Normal Extension (C6) 5 Normal PT-OP-Q Treatments Start: 06/28/21 14:12 Freq: Status: Active Protocol: Document 07/12/21 12:22 SP (Rec: 07/12/21 13:03 SP [id number]) Cardio Equipment Upper Body Ergometer (UBE) Duration (Minutes) 10 RPM 60 Seat Position 13 Height 2.5 Other 1' forward, 1' backwards Therapeutic Exercises Supine Exercises Pool noodle Supine Exercise Name reviewe HEP Resistance TB #1 for T's and X's Equipment Used Purple pool noodle Comments 10 reps AROM flexion, Ts and half xs, pect stretch 30 sec Pelvic realignment exercises Supine Exercise Name reviewed: (adduction and HS isometric, pelvis lift) Side bilateral Reps/Minutes 5 reps, 3 sec hold all exercises Comments cued gentle engage and return Sidelying Exercises Open book Side bilateral Reps/Minutes 5 reps Comments continued coordinated breathing and scapular glide mobility Sitting Exercises Thoracic rotation Sitting Exercise Name HEP reviewed Reps/Minutes x3 reps reviewed Comments Bilateral, end-range deep breathing and rib movement, many reps each side Standing Exercises Racquet ball massage Standing Exercise Name reviewed HEP Comments B intrascapular STM, infraspinatus MWM 7 moo cat PT-OP-T Assessment and Plan Start: 06/28/21 14:12 Freq: Status: Active Protocol: Document 07/12/21 12:22 SP (Rec: 07/12/21 13:03 SP [id number]) Physical Therapy Assessment Goals 3 Half-Way Goal (LTG) Pt will perform progressive HEP with I including postural exercises, pelvic realignment, balance, flexibility and shoulder, core and intrascapular strengthening to improve pain and strength by 08/30/21. LTG Duration 8 weeks 2 Supervisor Cell Maintenance Goal (LTG) Pt will report a 50% improvement in pain, especially with sleeping pain, to improve recovery and quality of life by 08/30/21 LTG Duration 8 weeks 1 Supervisor Cell Maintenance Goal (LTG) Pt will present with improved B shoulder flexion, abduction and ER strength to at least 4/ 5 with MMT to improve functional use of arms by . LTG Duration 8 weeks Assessment Summary Assessment Tx focused on HEP review, cued for set up using HO received last tx was able to tolerate AROM> provided Tb for T and 1/ 2 X today with good feedback painfree and muscle work, cued UE positioning proper form when needed. Modified ER range for comfort. Cued for ball positioning for self STMs over interscap and infraspinatus. Physical Therapy Plan Frequency and Duration Frequency of Treatment 2x/Week Duration of Treatment 8 weeks Plan of Care Start Date 06/30/21 Plan of Care End Date 08/30/21 Therapeutic Interventions Therapeutic Interventions Aquatic Therapy,Balance Training,Canalithic Repositioning,Coordination Training,Home Exercise Program ,Joint Mobilizations,Manual Therapy,Neuromuscular Re- education,Patient/Caregiver Education,Self-Care/Home Management,Soft Tissue Mobilization,Taping, Therapeutic Activities, Therapeutic Exercises Modalities Cold Pack/Ice Massage,Hot Packs Next Visit Focus/Plan Next Note Type Treatment Note Next Visit Plan Assess response to HEP review and added TB, future tx posture cuing. POC: UBE, progress strengthening with theraband while lying on pool noodle. Eventually, body blade, core progression, wall slide for LE strengthening and balance
--- NOTE | 2021-07-15 14:30 | PT.OTN ---
Current Diagnoses Pain in right shoulder (07/15/21) Pain in left shoulder (07/15/21) Physical Therapy Treatment Note PT-OP-A Visit Information Start: 06/28/21 14:12 Freq: Status: Active Protocol: Document 07/15/21 13:48 SP (Rec: 07/15/21 14:33 SP [id number]) Out-Patient Physical Therapy Visit Information Visit Information Visit Type Treatment Note Visit Note Medicare 01/27 before KX JUDI Keller lead tx, provided instruction and education throught out tx, supervised by MARILIA Powell throughout tx. Visit Start Time 13:48 Visit Stop Time 14:30 Total Visit Minutes 42 Visit Number 5 Number of CARE NAVIGATOR Visits 2 PT-OP-B Current Condition Start: 06/28/21 14:12 Freq: Status: Active Protocol: Document 06/30/21 13:00 MB (Rec: 06/30/21 13:10 MB [id number]) Current Condition History of Current Condition Onset Date 1978 Current Complaints Pain at night and pain with some movements History of Current Condition Pt reports that in 1978, he was on his back working his triceps with free weights up to 30-40 lbs and lost control. He has had B shoulder pain on and off since that time. He never had good rehab. In the past 5-10 years, it has gotten worse. He started AROM and free weight press ups in 2019 and he got increased pain . Lifting, reaching behind his back, putting on a shirt all increase pain. The pain wakes him up at night. He has been taking Naproxen each night. It seems to work until the wee hours. When the pain wakes him up, he can put his arm up and the pain goes away so he can fall back asleep. He is having more pain in the left shoulder. He has pain in the superolateral joint area and down lateral deltoid area. He has has never had PT in the past. Pt is sleeping on his side and back. He sleeps with and dog. He has one pillow under his head. Pt denies paresthesias. Pt is concerned about restoring muscle mass as he noticed trouble stepping off a curb. Treatment Goals Patient/Caregiver Goals To decrease pain and get a exercise for arms PT-OP-C Subjective Start: 06/28/21 14:12 Freq: Status: Active Protocol: Document 07/15/21 13:48 SP (Rec: 07/15/21 14:33 SP [id number]) OP-PT Subjective Patient Comments Patient Comments Pt reported made it through the night with less pain without taking neproxin. Unsure if already PT-OP-J Posture/Palpation/Skin Start: 06/28/21 14:12 Freq: Status: Active Protocol: Document 06/30/21 13:00 MB (Rec: 06/30/21 16:03 MB [id number]) Posture Evaluation Comments Posture Comments Standing posture: decreased cervical lordosis, increased lower thoracic kyphosis with convexity to the left, Dowager 's hump, stiffness through pelvis, left shoulder higher than the right and pt is right handed, right iliac crest 1/2 higher than the left. PT-OP-K Range of Motion Start: 06/28/21 14:12 Freq: Status: Active Protocol: Document 06/30/21 13:00 MB (Rec: 06/30/21 16:03 MB [id number]) Cervical Spine Range of Motion Cervical Spine Active Testing Position Standing Flexion 33 Extension 24 Rotation Left 70 Rotation Right 53 Comments Pt's resting posture is with head in 4 deg right SB Shoulder Goniometric Range of Motion Shoulder Left Comments AROM B shoulder flexion and abduction approximately 140 deg PROM in supine with shoulder in 70 deg abduction is: ER 70 deg and IR 40 deg Right Comments AROM B shoulder flexion and abduction approximately 140 deg Supine ER/IR PROM with shoulder in 90/90: right is normal PT-OP-M Strength Start: 06/28/21 14:12 Freq: Status: Active Protocol: Document 06/30/21 13:00 MB (Rec: 06/30/21 16:03 MB [id number]) Shoulder Strength Shoulder Manual Muscle Testing Left External Rotation 3- Fair- Internal Rotation 5 Normal Comments Flexion and abduction deferred d/t fear of pain with MMT and active abduction. Pt is fearful/guarded about ER MMT Right External Rotation 3- Fair- Internal Rotation 5 Normal Comments Flexion and abduction deferred d/t fear of pain with MMT and active abduction. Pt is fearful/guarded about ER MMT Elbow/Forearm Strength Elbow and Forearm Manual Muscle Testing Left Flexion (C6) 5 Normal Extension (C7) 5 Normal Pronation 5 Normal Supination 4 Good Right Flexion (C6) 5 Normal Extension (C7) 5 Normal Pronation 5 Normal Supination 5 Normal Wrist Strength Wrist Manual Muscle Testing Left Flexion (C7) 4 Good Extension (C6) 4 Good Right Flexion (C7) 5 Normal Extension (C6) 5 Normal PT-OP-Q Treatments Start: 06/28/21 14:12 Freq: Status: Active Protocol: Document 07/15/21 13:48 SP (Rec: 07/15/21 14:33 SP [id number]) Therapeutic Exercises Supine Exercises Pool noodle Supine Exercise Name review next tx w/ TB Resistance TB #1 for T's and X's Equipment Used Purple pool noodle Comments 10 reps AROM flexion, Ts and half xs, pect stretch 30 sec Pelvic realignment exercises Supine Exercise Name reviewed: (adduction and HS isometric, pelvis lift) Side bilateral Equipment Used corrected not to be performed over foam roller! Reps/Minutes 5 reps, 3 sec hold all exercises Comments cued gentle engage and return Sidelying Exercises Open book Sidelying Exercise Name modified hand on head Side bilateral Equipment Used pillows between knees (noodle to challenging in pic) Reps/Minutes 5 reps Comments continued coordinated breathing and scapular glide mobility Sitting Exercises Thoracic rotation Sitting Exercise Name HEP reviewed Reps/Minutes x3 reps reviewed Comments Bilateral, end-range deep breathing and rib movement, many reps each side Standing Exercises resisted shld ext Standing Exercise Name added to HEP Side bilateral Resistance TB #1 Reps/Minutes 10 reps x5 sec hold Comments cued scap depressed stab eccentric return resisted rows Standing Exercise Name added to HEP Side bilateral Resistance Tb #1 Reps/Minutes 10 reps x 5 sec hold Comments cued scap depressed stab eccentric return standing posture at wall Standing Exercise Name added to HEP Equipment Used hips, shld at wall,towel behind neck CS /chin tuck Reps/Minutes 3 min Racquet ball massage Standing Exercise Name reviewed HEP didn't perform this tx- is helpful at home Comments B intrascapular STM, infraspinatus MWM 7 moo cat Self-Care/Home Management Treatment Education Patient Education Body Mechanics,Posture Other Education Extra time spent on postural alignment education seated on couch use of laptop, recommendations for elevate laptop; scoot all way back in chair/couch/ tall posture, CS neutral, arms relaxed in bent position at side (not out in front) for even gravity on body with decreased forward stressors on spine, shld and scapular complex. Better understanding modifications carryover with work through demonstration. PT-OP-T Assessment and Plan Start: 06/28/21 14:12 Freq: Status: Active Protocol: Document 07/15/21 13:48 SP (Rec: 07/15/21 14:33 SP [id number]) Physical Therapy Assessment Goals 3 Detention Goal (LTG) Pt will perform progressive HEP with I including postural exercises, pelvic realignment, balance, flexibility and shoulder, core and intrascapular strengthening to improve pain and strength by 08/30/21. LTG Duration 8 weeks 2 Shaper Hand Goal (LTG) Pt will report a 50% improvement in pain, especially with sleeping pain, to improve recovery and quality of life by 08/30/21 LTG Duration 8 weeks 1 Detention Goal (LTG) Pt will present with improved B shoulder flexion, abduction and ER strength to at least 4/ 5 with MMT to improve functional use of arms by . LTG Duration 8 weeks Assessment Summary Assessment Pt required cuing modifications for open book hand on head due to lateral humerus discomfort. Improved HEP review with cues, noted changes on his HO's. Initiated standing resisted row, shld ext and wall posture to carryover strengthening after seated posture education with better understanding. Physical Therapy Plan Frequency and Duration Frequency of Treatment 2x/Week Duration of Treatment 8 weeks Plan of Care Start Date 06/30/21 Plan of Care End Date 08/30/21 Therapeutic Interventions Therapeutic Interventions Aquatic Therapy,Balance Training,Canalithic Repositioning,Coordination Training,Home Exercise Program ,Joint Mobilizations,Manual Therapy,Neuromuscular Re- education,Patient/Caregiver Education,Self-Care/Home Management,Soft Tissue Mobilization,Taping, Therapeutic Activities, Therapeutic Exercises Modalities Cold Pack/Ice Massage,Hot Packs Next Visit Focus/Plan Next Note Type Treatment Note Next Visit Plan Recheck: supine noodle ex w/ TB, standing posture, resisted row & extension. POC: UBE, progress strengthening with theraband while lying on pool noodle. Eventually, body blade, core progression, wall slide for LE strengthening and balance
--- NOTE | 2021-07-19 09:00 | PT.OTN ---
Current Diagnoses Pain in right shoulder (07/19/21) Pain in left shoulder (07/19/21) Physical Therapy Treatment Note PT-OP-A Visit Information Start: 06/28/21 14:12 Freq: Status: Active Protocol: Document 07/19/21 08:15 ER (Rec: 07/19/21 08:59 ER [id number]) Out-Patient Physical Therapy Visit Information Visit Information Visit Type Treatment Note Visit Note Medicare 01/27 before [facility]X JUDI Keller lead tx, provided instruction and education throught out tx, directly supervised by PT Elisa Roca throughout tx. 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 He has had B shoulder pain on and off since that time. He never had good rehab. In the past 5-10 years, it has gotten worse. He started AROM and free weight press ups in 2019 and he got increased pain . Lifting, reaching behind his back, putting on a shirt all increase pain. The pain wakes him up at night. He has been taking Naproxen each night. It seems to work until the wee hours. When the pain wakes him up, he can put his arm up and the pain goes away so he can fall back asleep. He is having more pain in the left shoulder. He has pain in the superolateral joint area and down lateral deltoid area. He has has never had PT in the past. Pt is sleeping on his side and back. He sleeps with and dog. He has one pillow under his head. Pt denies paresthesias. Pt is concerned about restoring muscle mass as he noticed trouble stepping off a curb. Treatment Goals Patient/Caregiver Goals To decrease pain and get a exercise for arms PT-OP-C Subjective Start: 06/28/21 14:12 Freq: Status: Active Protocol: Document 07/19/21 08:15 ER (Rec: 07/19/21 08:59 ER [id number]) OP-PT Subjective Patient Comments Patient Comments Pt reports still using naproxen at night, but less. Feels that exercises are helping out. Said that his chair armrests are not adjustable, and seem a little high. he has no armrests when working on his computer on couch. PT-OP-J Posture/Palpation/Skin Start: 06/28/21 14:12 Freq: Status: Active Protocol: Document 06/30/21 13:00 MB (Rec: 06/30/21 16:03 MB [id number]) Posture Evaluation Comments Posture Comments Standing posture: decreased cervical lordosis, increased lower thoracic kyphosis with convexity to the left, Dowager 's hump, stiffness through pelvis, left shoulder higher than the right and pt is right handed, right iliac crest 1/2 higher than the left. PT-OP-K Range of Motion Start: 06/28/21 14:12 Freq: Status: Active Protocol: Document 06/30/21 13:00 MB (Rec: 06/30/21 16:03 MB [id number]) Cervical Spine Range of Motion Cervical Spine Active Testing Position Standing Flexion 33 Extension 24 Rotation Left 70 Rotation Right 53 Comments Pt's resting posture is with head in 4 deg right SB Shoulder Goniometric Range of Motion Shoulder Left Comments AROM B shoulder flexion and abduction approximately 140 deg PROM in supine with shoulder in 70 deg abduction is: ER 70 deg and IR 40 deg Right Comments AROM B shoulder flexion and abduction approximately 140 deg Supine ER/IR PROM with shoulder in 90/90: right is normal PT-OP-M Strength Start: 06/28/21 14:12 Freq: Status: Active Protocol: Document 06/30/21 13:00 MB (Rec: 06/30/21 16:03 MB [id number]) Shoulder Strength Shoulder Manual Muscle Testing Left External Rotation 3- Fair- Internal Rotation 5 Normal Comments Flexion and abduction deferred d/t fear of pain with MMT and active abduction. Pt is fearful/guarded about ER MMT Right External Rotation 3- Fair- Internal Rotation 5 Normal Comments Flexion and abduction deferred d/t fear of pain with MMT and active abduction. Pt is fearful/guarded about ER MMT Elbow/Forearm Strength Elbow and Forearm Manual Muscle Testing Left Flexion (C6) 5 Normal Extension (C7) 5 Normal Pronation 5 Normal Supination 4 Good Right Flexion (C6) 5 Normal Extension (C7) 5 Normal Pronation 5 Normal Supination 5 Normal Wrist Strength Wrist Manual Muscle Testing Left Flexion (C7) 4 Good Extension (C6) 4 Good Right Flexion (C7) 5 Normal Extension (C6) 5 Normal PT-OP-Q Treatments Start: 06/28/21 14:12 Freq: Status: Active Protocol: Document 07/19/21 08:15 ER (Rec: 07/19/21 08:59 ER [id number]) Cardio Equipment Upper Body Ergometer (UBE) Duration (Minutes) 8 RPM 60 Seat Position 12 Height 2.5 Other 1' fwd, 1 'backward Therapeutic Exercises Supine Exercises Pool noodle Resistance AROM, then TB#1 for Ts Xs Equipment Used Purple pool noodle Comments 10 reps AROM Ts, Xs, 30s W stretch x3, then TB#1 Xs x 10 ea, Ts x 10 Pelvic realignment exercises Supine Exercise Name reviewed: (adduction and HS isometric, pelvis lift) Side bilateral Reps/Minutes 5 reps, 3 sec hold all exercises Comments cued for medial knee to contralateral toe direction of pelvic lift Sidelying Exercises Open book Side bilateral Equipment Used ball between knees Reps/Minutes 5 to each side with 3 breath duuration Comments cues for head movement to follow UE in motion Standing Exercises standing posture at wall Standing Exercise Name added to HEP Equipment Used hips, shld at wall,towel behind neck CS /chin tuck Reps/Minutes 3 min PT-OP-T Assessment and Plan Start: 06/28/21 14:12 Freq: Status: Active Protocol: Document 07/19/21 08:15 ER (Rec: 07/19/21 08:59 ER [id number]) Physical Therapy Assessment Goals 3 Intermediate Goal (LTG) Pt will perform progressive HEP with I including postural exercises, pelvic realignment, balance, flexibility and shoulder, core and intrascapular strengthening to improve pain and strength by 08/30/21. LTG Duration 8 weeks 2 Molder Helper Goal (LTG) Pt will report a 50% improvement in pain, especially with sleeping pain, to improve recovery and quality of life by 08/30/21 LTG Duration 8 weeks 1 Molder Helper Goal (LTG) Pt will present with improved B shoulder flexion, abduction and ER strength to at least 4/ 5 with MMT to improve functional use of arms by . LTG Duration 8 weeks Assessment Summary Assessment UBE for warm-up and endurance, left pt. apropriately winded . Pt. unable to bring occiput to wall without cervical pain in standing, but able to relax into same position on pool noodle in supine without pain, though noted tension in neck. Pt. demonstrated improved shoulder ROM with reduced pain. Some twinges at end of ROM with Ts, Ws. Pt. instructed to reduce ROM to prevent pain with stretch. Advised use of pillows supporting arms when using computer on couch. Consider SITS and deltoid strengthening as pain in ROM ceases. Physical Therapy Plan Next Visit Focus/Plan Next Note Type Treatment Note Next Visit Plan Consider progression to body blade for dynamic strenthening of deltoids, continue core strenthening. consider quadruped pelvic stabilization and thoraco-scapular stabilization.
--- NOTE | 2021-07-19 10:25 | PT.OTN ---
Current Diagnoses Pain in right shoulder (07/19/21) Pain in left shoulder (07/19/21) Physical Therapy Treatment Note PT-OP-A Visit Information Start: 06/28/21 14:12 Freq: Status: Active Protocol: Document 07/19/21 08:15 ER (Rec: 07/19/21 08:59 ER [id number]) Out-Patient Physical Therapy Visit Information Visit Information Visit Type Treatment Note Visit Note Medicare 01/27 before KX JUDI Keller lead tx, provided instruction and education throught out tx, directly supervised by PT Elisa Roca throughout tx. 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 He has had B shoulder pain on and off since that time. He never had good rehab. In the past 5-10 years, it has gotten worse. He started AROM and free weight press ups in 2019 and he got increased pain . Lifting, reaching behind his back, putting on a shirt all increase pain. The pain wakes him up at night. He has been taking Naproxen each night. It seems to work until the wee hours. When the pain wakes him up, he can put his arm up and the pain goes away so he can fall back asleep. He is having more pain in the left shoulder. He has pain in the superolateral joint area and down lateral deltoid area. He has has never had PT in the past. Pt is sleeping on his side and back. He sleeps with and dog. He has one pillow under his head. Pt denies paresthesias. Pt is concerned about restoring muscle mass as he noticed trouble stepping off a curb. Treatment Goals Patient/Caregiver Goals To decrease pain and get a exercise for arms PT-OP-C Subjective Start: 06/28/21 14:12 Freq: Status: Active Protocol: Document 07/19/21 08:15 ER (Rec: 07/19/21 08:59 ER [id number]) OP-PT Subjective Patient Comments Patient Comments Pt reports still using naproxen at night, but less. Feels that exercises are helping out. Said that his chair armrests are not adjustable, and seem a little high. he has no armrests when working on his computer on couch. PT-OP-J Posture/Palpation/Skin Start: 06/28/21 14:12 Freq: Status: Active Protocol: Document 06/30/21 13:00 MB (Rec: 06/30/21 16:03 MB [id number]) Posture Evaluation Comments Posture Comments Standing posture: decreased cervical lordosis, increased lower thoracic kyphosis with convexity to the left, Dowager 's hump, stiffness through pelvis, left shoulder higher than the right and pt is right handed, right iliac crest 1/2 higher than the left. PT-OP-K Range of Motion Start: 06/28/21 14:12 Freq: Status: Active Protocol: Document 06/30/21 13:00 MB (Rec: 06/30/21 16:03 MB [id number]) Cervical Spine Range of Motion Cervical Spine Active Testing Position Standing Flexion 33 Extension 24 Rotation Left 70 Rotation Right 53 Comments Pt's resting posture is with head in 4 deg right SB Shoulder Goniometric Range of Motion Shoulder Left Comments AROM B shoulder flexion and abduction approximately 140 deg PROM in supine with shoulder in 70 deg abduction is: ER 70 deg and IR 40 deg Right Comments AROM B shoulder flexion and abduction approximately 140 deg Supine ER/IR PROM with shoulder in 90/90: right is normal PT-OP-M Strength Start: 06/28/21 14:12 Freq: Status: Active Protocol: Document 06/30/21 13:00 MB (Rec: 06/30/21 16:03 MB [id number]) Shoulder Strength Shoulder Manual Muscle Testing Left External Rotation 3- Fair- Internal Rotation 5 Normal Comments Flexion and abduction deferred d/t fear of pain with MMT and active abduction. Pt is fearful/guarded about ER MMT Right External Rotation 3- Fair- Internal Rotation 5 Normal Comments Flexion and abduction deferred d/t fear of pain with MMT and active abduction. Pt is fearful/guarded about ER MMT Elbow/Forearm Strength Elbow and Forearm Manual Muscle Testing Left Flexion (C6) 5 Normal Extension (C7) 5 Normal Pronation 5 Normal Supination 4 Good Right Flexion (C6) 5 Normal Extension (C7) 5 Normal Pronation 5 Normal Supination 5 Normal Wrist Strength Wrist Manual Muscle Testing Left Flexion (C7) 4 Good Extension (C6) 4 Good Right Flexion (C7) 5 Normal Extension (C6) 5 Normal PT-OP-Q Treatments Start: 06/28/21 14:12 Freq: Status: Active Protocol: Document 07/19/21 08:15 ER (Rec: 07/19/21 08:59 ER [id number]) Cardio Equipment Upper Body Ergometer (UBE) Duration (Minutes) 8 RPM 60 Seat Position 12 Height 2.5 Other 1' fwd, 1 'backward Therapeutic Exercises Supine Exercises Pool noodle Resistance AROM, then TB#1 for Ts Xs Equipment Used Purple pool noodle Comments 10 reps AROM Ts, Xs, 30s W stretch x3, then TB#1 Xs x 10 ea, Ts x 10 Pelvic realignment exercises Supine Exercise Name reviewed: (adduction and HS isometric, pelvis lift) Side bilateral Reps/Minutes 5 reps, 3 sec hold all exercises Comments cued for medial knee to contralateral toe direction of pelvic lift Sidelying Exercises Open book Side bilateral Equipment Used ball between knees Reps/Minutes 5 to each side with 3 breath duuration Comments cues for head movement to follow UE in motion Standing Exercises standing posture at wall Standing Exercise Name added to HEP Equipment Used hips, shld at wall,towel behind neck CS /chin tuck Reps/Minutes 3 min PT-OP-T Assessment and Plan Start: 06/28/21 14:12 Freq: Status: Active Protocol: Document 07/19/21 08:15 ER (Rec: 07/19/21 08:59 ER [id number]) Physical Therapy Assessment Goals 3 Usp Goal (LTG) Pt will perform progressive HEP with I including postural exercises, pelvic realignment, balance, flexibility and shoulder, core and intrascapular strengthening to improve pain and strength by 08/30/21. LTG Duration 8 weeks 2 Last Cleaner Goal (LTG) Pt will report a 50% improvement in pain, especially with sleeping pain, to improve recovery and quality of life by 08/30/21 LTG Duration 8 weeks 1 Last Cleaner Goal (LTG) Pt will present with improved B shoulder flexion, abduction and ER strength to at least 4/ 5 with MMT to improve functional use of arms by . LTG Duration 8 weeks Assessment Summary Assessment UBE for warm-up and endurance, left pt. apropriately winded . Pt. unable to bring occiput to wall without cervical pain in standing, but able to relax into same position on pool noodle in supine without pain, though noted tension in neck. Pt. demonstrated improved shoulder ROM with reduced pain. Some twinges at end of ROM with Ts, Ws. Pt. instructed to reduce ROM to prevent pain with stretch. Advised use of pillows supporting arms when using computer on couch. Consider SITS and deltoid strengthening as pain in ROM ceases. Physical Therapy Plan Next Visit Focus/Plan Next Note Type Treatment Note Next Visit Plan Consider progression to body blade for dynamic strenthening of deltoids, continue core strenthening. consider quadruped pelvic stabilization and thoraco-scapular stabilization.
--- NOTE | 2021-07-22 13:00 | PT.OTN ---
Current Diagnoses Pain in right shoulder (07/22/21) Pain in left shoulder (07/22/21) Physical Therapy Treatment Note PT-OP-A Visit Information Start: 06/28/21 14:12 Freq: Status: Active Protocol: Document 07/22/21 12:15 ER (Rec: 07/22/21 13:12 ER [id number]) Out-Patient Physical Therapy Visit Information Visit Information Visit Type Treatment Note Visit Note Medicare 02/27 before KX JUDI Keller lead tx, provided instruction and education throught out tx, directly supervised by MARILIA Powell throughout tx. 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 He has had B shoulder pain on and off since that time. He never had good rehab. In the past 5-10 years, it has gotten worse. He started AROM and free weight press ups in 2019 and he got increased pain . Lifting, reaching behind his back, putting on a shirt all increase pain. The pain wakes him up at night. He has been taking Naproxen each night. It seems to work until the wee hours. When the pain wakes him up, he can put his arm up and the pain goes away so he can fall back asleep. He is having more pain in the left shoulder. He has pain in the superolateral joint area and down lateral deltoid area. He has has never had PT in the past. Pt is sleeping on his side and back. He sleeps with and dog. He has one pillow under his head. Pt denies paresthesias. Pt is concerned about restoring muscle mass as he noticed trouble stepping off a curb. Treatment Goals Patient/Caregiver Goals To decrease pain and get a exercise for arms PT-OP-C Subjective Start: 06/28/21 14:12 Freq: Status: Active Protocol: Document 07/22/21 12:15 ER (Rec: 07/22/21 13:12 ER [id number]) OP-PT Subjective Patient Comments Patient Comments Pt. reports having done cleaning in quadruped this morning that left his L anterior shoulder a little painful. Pt. reported at end of tx. that was able to reach back on left to put jacket on easier. PT-OP-J Posture/Palpation/Skin Start: 06/28/21 14:12 Freq: Status: Active Protocol: Document 06/30/21 13:00 MB (Rec: 06/30/21 16:03 MB [id number]) Posture Evaluation Comments Posture Comments Standing posture: decreased cervical lordosis, increased lower thoracic kyphosis with convexity to the left, Dowager 's hump, stiffness through pelvis, left shoulder higher than the right and pt is right handed, right iliac crest 1/2 higher than the left. PT-OP-K Range of Motion Start: 06/28/21 14:12 Freq: Status: Active Protocol: Document 06/30/21 13:00 MB (Rec: 06/30/21 16:03 MB [id number]) Cervical Spine Range of Motion Cervical Spine Active Testing Position Standing Flexion 33 Extension 24 Rotation Left 70 Rotation Right 53 Comments Pt's resting posture is with head in 4 deg right SB Shoulder Goniometric Range of Motion Shoulder Left Comments AROM B shoulder flexion and abduction approximately 140 deg PROM in supine with shoulder in 70 deg abduction is: ER 70 deg and IR 40 deg Right Comments AROM B shoulder flexion and abduction approximately 140 deg Supine ER/IR PROM with shoulder in 90/90: right is normal PT-OP-M Strength Start: 06/28/21 14:12 Freq: Status: Active Protocol: Document 06/30/21 13:00 MB (Rec: 06/30/21 16:03 MB [id number]) Shoulder Strength Shoulder Manual Muscle Testing Left External Rotation 3- Fair- Internal Rotation 5 Normal Comments Flexion and abduction deferred d/t fear of pain with MMT and active abduction. Pt is fearful/guarded about ER MMT Right External Rotation 3- Fair- Internal Rotation 5 Normal Comments Flexion and abduction deferred d/t fear of pain with MMT and active abduction. Pt is fearful/guarded about ER MMT Elbow/Forearm Strength Elbow and Forearm Manual Muscle Testing Left Flexion (C6) 5 Normal Extension (C7) 5 Normal Pronation 5 Normal Supination 4 Good Right Flexion (C6) 5 Normal Extension (C7) 5 Normal Pronation 5 Normal Supination 5 Normal Wrist Strength Wrist Manual Muscle Testing Left Flexion (C7) 4 Good Extension (C6) 4 Good Right Flexion (C7) 5 Normal Extension (C6) 5 Normal PT-OP-Q Treatments Start: 06/28/21 14:12 Freq: Status: Active Protocol: Document 07/22/21 12:15 ER (Rec: 07/22/21 13:12 ER [id number]) Therapeutic Exercises Supine Exercises Pool noodle Supine Exercise Name Ts, Ws, Xs, FF ( HEP reviewed) Resistance AROM Ws, then TB#1 for Ts, Xs, FF Equipment Used black half roll on mat table Reps/Minutes x10 reps each Comments good form Sidelying Exercises Open book Sidelying Exercise Name long arm good pec stretch Side bilateral Equipment Used 1/2 foam roller between knees Reps/Minutes 5 to each side with 3 breath duuration Comments cues for head movement to follow UE in motion Standing Exercises body blade Standing Exercise Name forward punch, OH punch Side left Reps/Minutes 20 sec each position Comments pain w/ IR/ER so stopped, cued scap retract/ tall posture, CS neutral resisted shld ext Standing Exercise Name reviewed HEP Side bilateral Resistance TB #1 Reps/Minutes x20 Comments cued scap depressed stab eccentric return resisted rows Standing Exercise Name reviewed HEP Side bilateral Resistance Tb #1 Reps/Minutes x20 Comments cued scap depressed stab eccentric return Other Exercises quadruped Other Exercise Name cat/ cow, pushup plus, UE/ LE ext bird dog Equipment Used limited FF ROM on L- cued tolerant range without UT recruit Reps/Minutes x10 each Comments cued anterior alignment ( limited), cued level scap and LS neutral Manual Therapy Treatment Taping K Tape Body Location B Treatment Focus scap depression Type of Tape Kinesio Tape Skin Inspection normal intact Comments I strip B post scap inferiorly, feedback scap depression. PT-OP-T Assessment and Plan Start: 06/28/21 14:12 Freq: Status: Active Protocol: Document 07/22/21 12:15 ER (Rec: 07/22/21 13:12 ER [id number]) Physical Therapy Assessment Goals 3 Oven Baker Goal (LTG) Pt will perform progressive HEP with I including postural exercises, pelvic realignment, balance, flexibility and shoulder, core and intrascapular strengthening to improve pain and strength by 08/30/21. LTG Duration 8 weeks 2 Fci Goal (LTG) Pt will report a 50% improvement in pain, especially with sleeping pain, to improve recovery and quality of life by 08/30/21 LTG Duration 8 weeks 1 Fci Goal (LTG) Pt will present with improved B shoulder flexion, abduction and ER strength to at least 4/ 5 with MMT to improve functional use of arms by . LTG Duration 8 weeks Assessment Summary Assessment Improved B shld ER Ws to Ys with forearms // with floor AROM, very little discomfort. Cued painfree range during Xs over foam roller. Initiated body blade with good muscle response forward and OH but pain during IR/ER so dc that directioning. Intermittent cuing for elevated ribcage posturing throughout tx to allow scapular alignment. Provided K taping for postural feedback. Physical Therapy Plan Frequency and Duration Frequency of Treatment 2x/Week Duration of Treatment 8 weeks Plan of Care Start Date 06/30/21 Plan of Care End Date 08/30/21 Therapeutic Interventions Therapeutic Interventions Aquatic Therapy,Balance Training,Canalithic Repositioning,Coordination Training,Home Exercise Program ,Joint Mobilizations,Manual Therapy,Neuromuscular Re- education,Patient/Caregiver Education,Self-Care/Home Management,Soft Tissue Mobilization,Taping, Therapeutic Activities, Therapeutic Exercises Modalities Cold Pack/Ice Massage,Hot Packs Next Visit Focus/Plan Next Note Type Treatment Note Next Visit Plan Check response to body blade for dynamic strenthening of deltoids and quadruped scap mobility, continue core strenthening.
--- NOTE | 2021-07-27 13:05 | PT.OTN ---
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 He has had B shoulder pain on and off since that time. He never had good rehab. In the past 5-10 years, it has gotten worse. He started AROM and free weight press ups in 2019 and he got increased pain . Lifting, reaching behind his back, putting on a shirt all increase pain. The pain wakes him up at night. He has been taking Naproxen each night. It seems to work until the wee hours. When the pain wakes him up, he can put his arm up and the pain goes away so he can fall back asleep. He is having more pain in the left shoulder. He has pain in the superolateral joint area and down lateral deltoid area. He has has never had PT in the past. Pt is sleeping on his side and back. He sleeps with and dog. He has one pillow under his head. Pt denies paresthesias. Pt is concerned about restoring muscle mass as he noticed trouble stepping off a curb. Treatment Goals Patient/Caregiver Goals To decrease pain and get a exercise for arms PT-OP-C Subjective Start: 06/28/21 14:12 Freq: Status: Active Protocol: Document 07/27/21 12:15 SP (Rec: 07/27/21 13:06 SP [id number]) OP-PT Subjective Patient Comments Patient Comments Pt reports still having certain amount of pain 2-3/10 over anterior proximal bicep and lateral distal deltoid that continues to wake him up at night having to take neproxin to find comfort. Pt continues to arrive rounded posture shoulder forward. Pt reported felt fine after last tx with use of body blade. PT-OP-J Posture/Palpation/Skin Start: 06/28/21 14:12 Freq: Status: Active Protocol: Document 06/30/21 13:00 MB (Rec: 06/30/21 16:03 MB [id number]) Posture Evaluation Comments Posture Comments Standing posture: decreased cervical lordosis, increased lower thoracic kyphosis with convexity to the left, Dowager 's hump, stiffness through pelvis, left shoulder higher than the right and pt is right handed, right iliac crest 1/2 higher than the left. PT-OP-K Range of Motion Start: 06/28/21 14:12 Freq: Status: Active Protocol: Document 06/30/21 13:00 MB (Rec: 06/30/21 16:03 MB [id number]) Cervical Spine Range of Motion Cervical Spine Active Testing Position Standing Flexion 33 Extension 24 Rotation Left 70 Rotation Right 53 Comments Pt's resting posture is with head in 4 deg right SB Shoulder Goniometric Range of Motion Shoulder Left Comments AROM B shoulder flexion and abduction approximately 140 deg PROM in supine with shoulder in 70 deg abduction is: ER 70 deg and IR 40 deg Right Comments AROM B shoulder flexion and abduction approximately 140 deg Supine ER/IR PROM with shoulder in 90/90: right is normal PT-OP-M Strength Start: 06/28/21 14:12 Freq: Status: Active Protocol: Document 06/30/21 13:00 MB (Rec: 06/30/21 16:03 MB [id number]) Shoulder Strength Shoulder Manual Muscle Testing Left External Rotation 3- Fair- Internal Rotation 5 Normal Comments Flexion and abduction deferred d/t fear of pain with MMT and active abduction. Pt is fearful/guarded about ER MMT Right External Rotation 3- Fair- Internal Rotation 5 Normal Comments Flexion and abduction deferred d/t fear of pain with MMT and active abduction. Pt is fearful/guarded about ER MMT Elbow/Forearm Strength Elbow and Forearm Manual Muscle Testing Left Flexion (C6) 5 Normal Extension (C7) 5 Normal Pronation 5 Normal Supination 4 Good Right Flexion (C6) 5 Normal Extension (C7) 5 Normal Pronation 5 Normal Supination 5 Normal Wrist Strength Wrist Manual Muscle Testing Left Flexion (C7) 4 Good Extension (C6) 4 Good Right Flexion (C7) 5 Normal Extension (C6) 5 Normal PT-OP-Q Treatments Start: 06/28/21 14:12 Freq: Status: Active Protocol: Document 07/27/21 12:15 SP (Rec: 07/27/21 13:06 SP [id number]) Therapeutic Exercises Supine Exercises Pool noodle Supine Exercise Name Ts, Xs Resistance Tb #1 Equipment Used 65cm tball, bridge LB Reps/Minutes x20 each Comments cued palm toward face thumb back- improved decrease anterior shld discomf. Prone Exercises over tball: Ts, FF Prone Exercise Name single arm Resistance AROM> #2 Equipment Used 65 cm ball>55cm tball Comments found challenging, stopped Sitting Exercises Thoracic rotation Sitting Exercise Name HEP reviewed Reps/Minutes x3 reps reviewed Comments Bilateral, end-range deep breathing and rib movement, many reps each side Standing Exercises shoulder ER Standing Exercise Name w/ scap retraction/ depression Side bilateral Resistance AROM Reps/Minutes x10 Comments improved posture, scap depression/ retraction stability w/ER Other Exercises quadruped Other Exercise Name UE/ LE ext bird dog, LE contact floor ( in PT only at this time) Side bilateral Resistance AROM Equipment Used limited FF ROM on L- cued tolerant range without UT recruit Reps/Minutes x10 each Comments cued nose toward floor, improved form, painfree Manual Therapy Treatment Soft Tissue Mobilization STMs Body Location B deltoid, distal infra, pec major, proximal abdominals, SCM, suboccipitals Mobilization Type Myofascial Release,Strumming, Sustained Pressure Intensity/Depth Moderate Body Position Hooklying Comments good feedback response, little settling back of scapula toward table post manual. Joint Mobilizations GH jt Joint B Direction inferior/ posterior glides Grade II Body Position Hooklying Comments good feedback response Manual Traction CS Body Position Hooklying Reps/Duration 30s Comments good feedback response Self-Care/Home Management Treatment Education Patient Education Posture Other Education Extra time spent on postural alignment during mobility upon arrival, improved with self corrections inmirror and initiated shld ER AROM for open shld retract/depress alingment. PT-OP-T Assessment and Plan Start: 06/28/21 14:12 Freq: Status: Active Protocol: Document 07/27/21 12:15 SP (Rec: 07/27/21 13:06 SP [id number]) Physical Therapy Assessment Goals 3 Pool Servicer Goal (LTG) Pt will perform progressive HEP with I including postural exercises, pelvic realignment, balance, flexibility and shoulder, core and intrascapular strengthening to improve pain and strength by 08/30/21. LTG Duration 8 weeks 2 Nursing Home Goal (LTG) Pt will report a 50% improvement in pain, especially with sleeping pain, to improve recovery and quality of life by 08/30/21 LTG Duration 8 weeks 1 Nursing Home Goal (LTG) Pt will present with improved B shoulder flexion, abduction and ER strength to at least 4/ 5 with MMT to improve functional use of arms by . LTG Duration 8 weeks Assessment Summary Assessment Pt very tight pec minor, SCM with forward scapula and protracted head upon arrival with report anterior and lateral shld discomfort B. Improved alignment and CS neutral post manual and supine Tball pec stretch, incorporated TB ex over tball and standing shld ER AROM in mirror for self feedback corrections. Education on postural alignment awareness, he verbalized understanding and notices almost every 30 sec needs to correct self and working on it. Physical Therapy Plan Frequency and Duration Frequency of Treatment 2x/Week Duration of Treatment 8 weeks Plan of Care Start Date 06/30/21 Plan of Care End Date 08/30/21 Therapeutic Interventions Therapeutic Interventions Aquatic Therapy,Balance Training,Canalithic Repositioning,Coordination Training,Home Exercise Program ,Joint Mobilizations,Manual Therapy,Neuromuscular Re- education,Patient/Caregiver Education,Self-Care/Home Management,Soft Tissue Mobilization,Taping, Therapeutic Activities, Therapeutic Exercises Modalities Cold Pack/Ice Massage,Hot Packs Next Visit Focus/Plan Next Note Type Treatment Note Next Visit Plan Ask how responded to K taping 2 tx ago. Recheck: shld ER AROM, body blade for dynamic strenthening of deltoids and quadruped scap mobility, continue core strenthening.
--- NOTE | 2021-07-30 13:10 | PT.OTN ---
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 He has had B shoulder pain on and off since that time. He never had good rehab. In the past 5-10 years, it has gotten worse. He started AROM and free weight press ups in 2019 and he got increased pain . Lifting, reaching behind his back, putting on a shirt all increase pain. The pain wakes him up at night. He has been taking Naproxen each night. It seems to work until the wee hours. When the pain wakes him up, he can put his arm up and the pain goes away so he can fall back asleep. He is having more pain in the left shoulder. He has pain in the superolateral joint area and down lateral deltoid area. He has has never had PT in the past. Pt is sleeping on his side and back. He sleeps with and dog. He has one pillow under his head. Pt denies paresthesias. Pt is concerned about restoring muscle mass as he noticed trouble stepping off a curb. Treatment Goals Patient/Caregiver Goals To decrease pain and get a exercise for arms PT-OP-C Subjective Start: 06/28/21 14:12 Freq: Status: Active Protocol: Document 07/30/21 12:18 MB (Rec: 07/30/21 13:08 MB [id number]) OP-PT Subjective Patient Comments Patient Comments Pt reports that last night was sort of a bad night. He reports that his shoulder hurts if it falls over at night when on his side. He would like to give it two more weeks of therapy to see how he feels. PT-OP-J Posture/Palpation/Skin Start: 06/28/21 14:12 Freq: Status: Active Protocol: Document 06/30/21 13:00 MB (Rec: 06/30/21 16:03 MB [id number]) Posture Evaluation Comments Posture Comments Standing posture: decreased cervical lordosis, increased lower thoracic kyphosis with convexity to the left, Dowager 's hump, stiffness through pelvis, left shoulder higher than the right and pt is right handed, right iliac crest 1/2 higher than the left. PT-OP-K Range of Motion Start: 06/28/21 14:12 Freq: Status: Active Protocol: Document 06/30/21 13:00 MB (Rec: 06/30/21 16:03 MB [id number]) Cervical Spine Range of Motion Cervical Spine Active Testing Position Standing Flexion 33 Extension 24 Rotation Left 70 Rotation Right 53 Comments Pt's resting posture is with head in 4 deg right SB Shoulder Goniometric Range of Motion Shoulder Left Comments AROM B shoulder flexion and abduction approximately 140 deg PROM in supine with shoulder in 70 deg abduction is: ER 70 deg and IR 40 deg Right Comments AROM B shoulder flexion and abduction approximately 140 deg Supine ER/IR PROM with shoulder in 90/90: right is normal PT-OP-M Strength Start: 06/28/21 14:12 Freq: Status: Active Protocol: Document 06/30/21 13:00 MB (Rec: 06/30/21 16:03 MB [id number]) Shoulder Strength Shoulder Manual Muscle Testing Left External Rotation 3- Fair- Internal Rotation 5 Normal Comments Flexion and abduction deferred d/t fear of pain with MMT and active abduction. Pt is fearful/guarded about ER MMT Right External Rotation 3- Fair- Internal Rotation 5 Normal Comments Flexion and abduction deferred d/t fear of pain with MMT and active abduction. Pt is fearful/guarded about ER MMT Elbow/Forearm Strength Elbow and Forearm Manual Muscle Testing Left Flexion (C6) 5 Normal Extension (C7) 5 Normal Pronation 5 Normal Supination 4 Good Right Flexion (C6) 5 Normal Extension (C7) 5 Normal Pronation 5 Normal Supination 5 Normal Wrist Strength Wrist Manual Muscle Testing Left Flexion (C7) 4 Good Extension (C6) 4 Good Right Flexion (C7) 5 Normal Extension (C6) 5 Normal PT-OP-Q Treatments Start: 06/28/21 14:12 Freq: Status: Active Protocol: Document 07/30/21 12:18 MB (Rec: 07/30/21 13:08 MB [id number]) Cardio Equipment Upper Body Ergometer (UBE) Duration (Minutes) 15 Other 1' forward and 1' backwards Therapeutic Exercises Standing Exercises shoulder ER Side bilateral Resistance AROM Comments 10 reps Racquet ball massage Side bilateral Comments Infraspinatus MWM and intrascapular STM Other Exercises HEP Review Comments Went through all his exercise handouts today, removed several quadruped Other Exercise Name cat/cow, scapula push ups Side bilateral Comments 10 reps each PT-OP-T Assessment and Plan Start: 06/28/21 14:12 Freq: Status: Active Protocol: Document 07/30/21 12:18 MB (Rec: 07/30/21 13:08 MB [id number]) Physical Therapy Assessment Goals 3 Half-Way Goal (LTG) Pt will perform progressive HEP with I including postural exercises, pelvic realignment, balance, flexibility and shoulder, core and intrascapular strengthening to improve pain and strength by 08/30/21. LTG Duration 8 weeks 2 Mobile Device Developer Goal (LTG) Pt will report a 50% improvement in pain, especially with sleeping pain, to improve recovery and quality of life by 08/30/21 LTG Duration 8 weeks 1 Mobile Device Developer Goal (LTG) Pt will present with improved B shoulder flexion, abduction and ER strength to at least 4/ 5 with MMT to improve functional use of arms by . LTG Duration 8 weeks Assessment Summary Assessment D/cd quadriped extremity reach , posture exercises at wall and body blade today. Verbally reviewed the rest of his exercises today. Practiced racquet ball massages today and pt likes. Will perform progress note next treatment date and initiate [facility] Protocol. Physical Therapy Plan Frequency and Duration Frequency of Treatment 2x/Week Duration of Treatment 8 weeks Plan of Care Start Date 06/30/21 Plan of Care End Date 08/30/21 Therapeutic Interventions Therapeutic Interventions Aquatic Therapy,Balance Training,Canalithic Repositioning,Coordination Training,Home Exercise Program ,Joint Mobilizations,Manual Therapy,Neuromuscular Re- education,Patient/Caregiver Education,Self-Care/Home Management,Soft Tissue Mobilization,Taping, Therapeutic Activities, Therapeutic Exercises Modalities Cold Pack/Ice Massage,Hot Packs Other Referrals/Consults Referrals/Consults Recommended Orthopedist to check out both shoulders Next Visit Focus/Plan Next Note Type Progress Note Next Visit Plan [facility] Protocol
--- NOTE | 2021-08-12 15:25 | PT-OP ANOTE ---
Pt emails PT to state that he was exposed to COVID, has gotten tested, has no symptoms and canceled two PT appointments to make sure he is negative before returning to PT.
--- NOTE | 2021-08-17 12:44 | PT.OTN ---
Current Diagnoses Pain in right shoulder (08/17/21) Pain in left shoulder (08/17/21) Physical Therapy Treatment Note PT-OP-A Visit Information Start: 06/28/21 14:12 Freq: Status: Active Protocol: Document 08/17/21 12:14 MB (Rec: 08/17/21 12:44 MB [id number]) Out-Patient Physical Therapy Visit Information Visit Information Visit Type Progress Note Visit Note Medicare 06/29 before KX Visit Start Time 12:14 Visit Stop Time 12:41 Total Visit Minutes 27 Visit Number 10 PT-OP-B Current Condition Start: 06/28/21 14:12 Freq: Status: Active Protocol: Document 06/30/21 13:00 MB (Rec: 06/30/21 13:10 MB [id number]) Current Condition History of Current Condition Onset Date 1978 Current Complaints Pain at night and pain with some movements History of Current Condition Pt reports that in 1978, he was on his back working his triceps with free weights up to 30-40 lbs and lost control. He has had B shoulder pain on and off since that time. He never had good rehab. In the past 5-10 years, it has gotten worse. He started AROM and free weight press ups in 2019 and he got increased pain . Lifting, reaching behind his back, putting on a shirt all increase pain. The pain wakes him up at night. He has been taking Naproxen each night. It seems to work until the wee hours. When the pain wakes him up, he can put his arm up and the pain goes away so he can fall back asleep. He is having more pain in the left shoulder. He has pain in the superolateral joint area and down lateral deltoid area. He has has never had PT in the past. Pt is sleeping on his side and back. He sleeps with and dog. He has one pillow under his head. Pt denies paresthesias. Pt is concerned about restoring muscle mass as he noticed trouble stepping off a curb. Treatment Goals Patient/Caregiver Goals To decrease pain and get a exercise for arms PT-OP-C Subjective Start: 06/28/21 14:12 Freq: Status: Active Protocol: Document 08/17/21 12:14 MB (Rec: 08/17/21 12:44 MB [id number]) OP-PT Subjective Patient Comments Patient Comments Pt states that he does not think that any of the stretches or exercises have helped since starting PT. The one thing that has helped has been using the pillow under his arm at night. He doesn't know if he hasn't done the exercises enough or if he is doing them too hard. Over giving, he had a lapse of discipline. He was only doing exercises 4x/wk before that. PT-OP-J Posture/Palpation/Skin Start: 06/28/21 14:12 Freq: Status: Active Protocol: Document 06/30/21 13:00 MB (Rec: 06/30/21 16:03 MB [id number]) Posture Evaluation Comments Posture Comments Standing posture: decreased cervical lordosis, increased lower thoracic kyphosis with convexity to the left, Dowager 's hump, stiffness through pelvis, left shoulder higher than the right and pt is right handed, right iliac crest 1/2 higher than the left. PT-OP-K Range of Motion Start: 06/28/21 14:12 Freq: Status: Active Protocol: Document 06/30/21 13:00 MB (Rec: 06/30/21 16:03 MB [id number]) Cervical Spine Range of Motion Cervical Spine Active Testing Position Standing Flexion 33 Extension 24 Rotation Left 70 Rotation Right 53 Comments Pt's resting posture is with head in 4 deg right SB Shoulder Goniometric Range of Motion Shoulder Left Comments AROM B shoulder flexion and abduction approximately 140 deg PROM in supine with shoulder in 70 deg abduction is: ER 70 deg and IR 40 deg Right Comments AROM B shoulder flexion and abduction approximately 140 deg Supine ER/IR PROM with shoulder in 90/90: right is normal PT-OP-M Strength Start: 06/28/21 14:12 Freq: Status: Active Protocol: Document 06/30/21 13:00 MB (Rec: 06/30/21 16:03 MB [id number]) Shoulder Strength Shoulder Manual Muscle Testing Left External Rotation 3- Fair- Internal Rotation 5 Normal Comments Flexion and abduction deferred d/t fear of pain with MMT and active abduction. Pt is fearful/guarded about ER MMT Right External Rotation 3- Fair- Internal Rotation 5 Normal Comments Flexion and abduction deferred d/t fear of pain with MMT and active abduction. Pt is fearful/guarded about ER MMT Elbow/Forearm Strength Elbow and Forearm Manual Muscle Testing Left Flexion (C6) 5 Normal Extension (C7) 5 Normal Pronation 5 Normal Supination 4 Good Right Flexion (C6) 5 Normal Extension (C7) 5 Normal Pronation 5 Normal Supination 5 Normal Wrist Strength Wrist Manual Muscle Testing Left Flexion (C7) 4 Good Extension (C6) 4 Good Right Flexion (C7) 5 Normal Extension (C6) 5 Normal PT-OP-Q Treatments Start: 06/28/21 14:12 Freq: Status: Active Protocol: Document 08/17/21 12:14 MB (Rec: 08/17/21 12:44 MB [id number]) Self-Care/Home Management Treatment Education Other Education Re-ed pt in importance of posture with regards to shoulder improvement and non- improvement, workstation set- up, needing to take breaks each morning and afternoon when writing to get on pool noodle to assist with postural changes and range and strength. Follow-up recommendations: orthopedist, diagnostics, medical acupuncture and massage PT-OP-T Assessment and Plan Start: 06/28/21 14:12 Freq: Status: Active Protocol: Document 08/17/21 12:14 MB (Rec: 08/17/21 12:44 MB [id number]) Physical Therapy Assessment Goals 3 Front End Java Developer Goal (LTG) Pt will perform progressive HEP with I including postural exercises, pelvic realignment, balance, flexibility and shoulder, core and intrascapular strengthening to improve pain and strength by 08/30/21. 08/17/21: Pt was performing exercises 4x/wk and he thinks they would have been helpful had he done them more often. LTG Duration Partially met 2 Front End Java Developer Goal (LTG) Pt will report a 50% improvement in pain, especially with sleeping pain, to improve recovery and quality of life by 08/30/21. 08/17/21: Pt reports that sleeping pain goal is met LTG Duration Met 1 [facility] Goal (LTG) Pt will present with improved B shoulder flexion, abduction and ER strength to at least 4/ 5 with MMT to improve functional use of arms by . 08/17/21: AROM comment first: both shoulder flexion and abduction grossly similar to 150 deg and limited end-range, also IR behind back is similar and grossly to T12. MMT: shoulder flexion: right and left 5/5; abduction right 5/5, left 3+/5 and pt reports pain; ER right 4/5, left 3+/5 and pt reports pain LTG Duration Partially met Assessment Summary Assessment Pt states that PT has not been helping overall. He states that at the most, he was only doing his exercises 4x/wk and not twice a day, taking a break from writing posture on the couch where he was typing on the lap top. He asks about other options and PT recommends follow-up with Dr. Guzman about medical acupuncture and he could consider massage, though manual work with PT was painful. Pt may also benefit from orthopedist consult and he could possibly benefit from further diagnostics of his left shoulder. PT suspects rotator cuff injury in setting of muscle weakness with testing and pain. Overall, pt' s postural changes including thoracic and cervical spine as well as poor activity level and unchanged work station positioning limit shoulder improvement. Also, there is the decrease exercise compliance. Will d/c PT. Physical Therapy Plan Other Referrals/Consults Referrals/Consults Recommended Orthopedist to check out both shoulders and consider further diagnostics of left shoulder at least in setting of weakness and pain with MMT
== END 2021-10-12 09:32 ==
LOC: PHYS 12:15
PROVIDERS: Family Provider Family Medicine; PCP Family Medicine; Referring Provider Family Medicine; Visit Provider Family Medicine
DX: M25.511 Pain in right shoulder (principal); M25.512 Pain in left shoulder
CPT/HCPCS: 97110; 97140; 97161; 97535

== ENCOUNTER → 2021-09-25 14:43 | Outpatient (CLI) | payer MEDICARE, OTHER, SELFPAY ==
--- NOTE | 2021-09-25 14:47 | DI.MRI.S_ITS ---
PROCEDURE: MR KNEE LT WO CON INDICATIONS: left knee OA not improved with PT TECHNIQUE: Noncontrast sagittal PD fast spin echo and T2 fast spin echo with fat saturation, sagittal 3-D FLASH with fat saturation; coronal T1 spin echo and PD fast spin echo with fat saturation, and axial PD fast spin echo with fat saturation through the knee. COMPARISON: None. FINDINGS: Image quality: Excellent. Menisci: The lateral meniscus is intact. Surfacing signal in the medial meniscus, compatible with horizontal tear. Cruciate ligaments: The anterior and posterior cruciate ligaments appear intact. T2 hyperintense signal about the ACL, which may reflect partial tear. Medial structures: The medial collateral ligament appears intact. Periligamentous edema, compatible with grade 1/2 injury. The visualized portions of the pes anserinus tendons appear normal. Small amount bursal fluid. Lateral structures: The lateral collateral ligament, long and short heads of the biceps femoris tendon appear intact. The popliteus tendon appears intact. The iliotibial band appears normal. Anterior structures: The quadriceps and patellar tendons appear intact. Patellar alignment is normal. No femoral trochlear dysplasia or ventral trochlear prominence. No edema in the infrapatellar fat pad. Bones and cartilage: No bone marrow contusions or fractures. The lateral compartment hyaline cartilage is preserved. Signal heterogeneity and fissuring of the medial femoral condyle hyaline cartilage. Signal heterogeneity in the hyaline cartilage overlying the lateral patellar facet. Joint space: Small knee joint fluid. Small Webb's cyst. IMPRESSION: 1. Horizontal tear in the medial meniscus. 2. Periligamentous edema of the ACL, concerning for partial tear. 3. MCL periligamentous edema, compatible grade 1/2 injury. 4. Small joint effusion and Webb cyst. 5. Mild degenerative changes of the medial compartment and patellar hyaline cartilage. Dictated by: Kwaku Ortiz M.D. on 09/27/2021 at 9:25 Approved by: Kwaku Ortiz M.D. on 09/27/2021 at 9:32
--- NOTE | 2021-09-25 14:47 | DI.MRI.S_ITS ---
PROCEDURE: MR SHOULDER LT WO CON INDICATIONS: left shoulder pain and OA not improved with PT TECHNIQUE: Noncontrast oblique coronal T2 fast spin echo with fat saturation, oblique sagittal T1 spin echo and T2 fast spin echo with fat saturation, axial T1 spin echo and T2 fast spin echo with fat saturation through the shoulder. COMPARISON: [facility], CR, XR SHOULDER LT MIN 2V, 06/16/2021, 9:40. FINDINGS: Image quality: Excellent. Rotator cuff: There is full-thickness tear of the distal supraspinatus tendon measuring 1.6 cm AP and 1.8 cm transverse. There is mild tendon retraction. No supraspinatus muscle atrophy. Mild infraspinatus and subscapularis tendons tendinitis. Bones and bursae: No bone marrow contusions or fractures. Mild acromioclavicular joint degeneration. The acromion demonstrates conventional anatomy, without an os acromiale. No pathologic subacromial-subdeltoid or subcoracoid bursal fluid is present. Capsule and soft tissues: Labrum appears intact The long head of the biceps tendon demonstrates normal location and morphology. The rotator interval appears normal, without fibrosis. The coracohumeral ligament is normal in thickness. IMPRESSION: 1. Full-thickness tear of the supraspinatus tendon. There is mild tendon retraction. No supraspinatus muscle atrophy. 2. Mild infraspinatus and subscapularis tendinitis. 3. Mild acromioclavicular joint degeneration. Dictated by: Hawa Henson M.D. on 09/27/2021 at 8:51 Approved by: Hawa Henson M.D. on 09/27/2021 at 10:53
== END ==
PROVIDERS: Family Provider Family Medicine; PCP Family Medicine; Referring Provider Family Medicine; Visit Provider Family Medicine
DX: M19.012 Primary osteoarthritis, left shoulder (principal); M17.12 Unilateral primary osteoarthritis, left knee; S46.012A Strain of muscle(s) and tendon(s) of the rotator cuff of left shoulder, initial encounter; M77.8 Other enthesopathies, not elsewhere classified
CPT/HCPCS: 73221; 73721

== ENCOUNTER → 2021-11-11 10:56 | Outpatient (CLI) | payer MEDICARE, OTHER, SELFPAY ==
--- NOTE | 2021-11-11 10:58 | DI.RAD.S_ITS ---
PROCEDURE: XR CERVICAL SPINE 2V OR 3V INDICATIONS: neck pain and right-sided arm numbness and weakness TECHNIQUE: 3 view(s) of the cervical spine were acquired. COMPARISON: None. FINDINGS: Bones: No fractures or dislocations to the T1 level. The lateral masses of C1 appear intact on the odontoid view. No suspicious bony lesions. Bilateral cervical facet arthropathy, prominent on the right. Soft tissues: No prevertebral soft tissue swelling. IMPRESSION: Bilateral cervical facet arthropathy, right greater than left. No evidence acute bony abnormality of the cervical spine. If clinical suspicion and/or symptoms persist, further assessment with repeat plain films, or advanced imaging (e.g., CT, MRI, or bone scan) may be helpful for further assessment. Dictated by: Beltran Robins M.D. on 11/11/2021 at 12:10 Approved by: Beltran Robins M.D. on 11/11/2021 at 12:11
== END ==
PROVIDERS: Family Provider Family Medicine; PCP Family Medicine; Referring Provider Family Medicine; Visit Provider Family Medicine
DX: M47.22 Other spondylosis with radiculopathy, cervical region (principal); M25.511 Pain in right shoulder
CPT/HCPCS: 72040

== ENCOUNTER → 2021-11-17 08:13 | Outpatient (CLI) | payer MEDICARE, OTHER, SELFPAY ==
--- NOTE | 2021-11-17 08:14 | DI.MRI.S_ITS ---
PROCEDURE: MR CERVICAL SPINE WO CON INDICATIONS: chronic neck pain with radiculopathy and weakness TECHNIQUE: Noncontrast sagittal T1 spin echo and T2 fast spin echo, sagittal STIR, foraminal oblique sagittal T2 fast spin echo, and axial gradient echo or T2 fast spin echo through the cervical spine. COMPARISON: None. FINDINGS: Image quality: Excellent. Alignment and Curvature: There is normal bony alignment. Bone Marrow: Marrow demonstrates normal overall signal. Spinal Cord: Visualized spinal cord has normal size and signal. No cerebellar tonsillar herniation. Paraspinous Soft Tissues: No paravertebral masses. Prevertebral soft tissues are normal in thickness. C2-C3: No canal stenosis. Bilateral facet hypertrophy. No foraminal stenosis. C3-C4: Mild central posterior disc protrusion indenting on the cord. Mild canal stenosis. AP diameter of the canal is 9.5 mm. Bilateral uncovertebral joint hypertrophy and facet hypertrophy resulting in severe bilateral foraminal narrowing with bilateral foraminal C4 nerve root impingement. C4-C5: No canal stenosis. Impressive right facet hypertrophy. Moderate bilateral foraminal narrowing with mild flattening deformity on the exiting bilateral C5 nerve roots. C5-C6: Right paracentral disc osteophyte complex abutting the central ventral surface of the cord and indenting on the right anterior aspect of the cord. Mild central canal stenosis. Central canal measures 9.5 mm. Severe right lateral recess stenosis with impingement on the ventral horn of the right C6 nerve root. Bilateral facet arthropathy, quite prominent on the right. [id number] bilateral foraminal narrowing. C6-C7: Broad-based right posterior lateral disc protrusion, indenting on the cord resulting in an AP diameter of the canal measuring 8.4 mm. There is severe right lateral recess and right foraminal secondary to disc material resulting in severe right lateral recess and right foraminal stenosis and impingement on the right C7 nerve root. Mild to moderate left foraminal narrowing. C7-T1: No canal stenosis or foraminal stenosis. IMPRESSION: 1. Diffuse spondylitic change. Findings include multilevel facet arthropathy. 2. At C6-C7, there is a right posterior lateral disc protrusion which results in moderate canal stenosis and severe right lateral recess and right foraminal stenosis and impingement on the right C7 nerve root. 3. Canal stenosis is mild at C4-C5 and C5-C6. 4. Multilevel foraminal narrowing as described above. Dictated by: Beltran Robins M.D. on 11/17/2021 at 12:54 Approved by: Beltran Robins M.D. on 11/17/2021 at 13:02
== END ==
PROVIDERS: Family Provider Family Medicine; PCP Family Medicine; Referring Provider Family Medicine; Visit Provider Family Medicine
DX: M47.22 Other spondylosis with radiculopathy, cervical region (principal); M50.123 Cervical disc disorder at C6-C7 level with radiculopathy; M48.02 Spinal stenosis, cervical region; R29.898 Other symptoms and signs involving the musculoskeletal system
CPT/HCPCS: 72141

== ENCOUNTER → 2022-08-15 10:12 | Outpatient (CLI) | payer MEDICARE, OTHER, SELFPAY ==
[2022-08-15 11:40] LABS: Influenza A - CEPHEID Flu A NEGATIVE (NEGATIVE); Influenza B - CEPHEID Flu B NEGATIVE (NEGATIVE); Respiratory Syncytial Virus POSITIVE (Negative)
[2022-08-15 11:44] LABS: COVID-19 CEPHEID 4-PLEX PCR Negative (Negative)
== END ==
PROVIDERS: Family Provider Family Medicine; PCP Family Medicine; Visit Provider Physician Assistant Medical
DX: R05.1 Acute cough (principal); R50.9 Fever, unspecified
CPT/HCPCS: 0241U

== ENCOUNTER → 2022-12-15 07:06 | Outpatient (CLI) | payer MEDICARE, OTHER, SELFPAY ==
[2022-12-15 08:03] LABS: Add Manual Diff / Slide Review NO; Basophils Absolute Auto 100 /uL (0-100); Eosinophils Absolute Auto 200 /uL (0-450); Eosinophils Percent Auto 3.5 % (2-4); Hematocrit 45.6 % (41-53); Hemoglobin 15.3 g/dL (13.5-17.5); Lymphocytes Absolute Auto 1400 /uL (1100-4500); Mean Corpuscular HGB Conc 33.6 % (30-36); Mean Corpuscular Hemoglobin 28.6 PG (26-34); Mean Corpuscular Volume 85.1 fL (80-100); Monocytes Absolute Auto 500 /uL (0-900); Monocytes Percent Auto 9.9 % (3-14); Neutrophils Absolute Auto 2900 /uL (1500-7000); Neutrophils Percent Auto 57.6 % (50-75); Platelet Count 220 X10^3/uL (150-400); Red Blood Cell Count 5.36 X10^6/uL (4.5-5.9); Red Cell Distribution Width 14.5 % (11.6-14.8)
[2022-12-15 08:22] LABS: Alanine Aminotransferase 36 IU/L (<50); Albumin Globulin Ratio 1.3 (1.0-2.8); Alkaline Phosphatase 70 U/L (38-126); Aspartate Aminotransferase 31 IU/L (17-59); BUN Creatinine Ratio 16.5 (6-22); Bilirubin Total 0.8 mg/dL (0.2-1.3); Blood Urea Nitrogen 15 mg/dL (9-20); Calcium 9.4 mg/dL (8.4-10.2); Carbon Dioxide 28 mmol/L (22-32); Chloride 104 mmol/L (98-107); Cholesterol 237 mg/dL (140-199); Estimated Glomerular Filt Rate > 60 mL/min (>60); Glucose 105 mg/dL (80-110); HDL Cholesterol 43 mg/dL (40-60); HEMOLYSIS < 15 (0-50); LDL Cholesterol Calculated 172 mg/dL (<100); Potassium 4.6 mmol/L (3.4-5.1); Sodium 140 mmol/L (137-145); Triglycerides 109 mg/dL (35-150)
[2022-12-15 08:45] LABS: Prostate Specific Antigen Scrn 4.28 ng/mL (0.1-4.0)
== END ==
PROVIDERS: Family Provider Family Medicine; PCP Family Medicine; Referring Provider Family Medicine; Visit Provider Family Medicine
DX: Z00.00 Encounter for general adult medical examination without abnormal findings (principal); E78.5 Hyperlipidemia, unspecified; Z12.5 Encounter for screening for malignant neoplasm of prostate; R74.8 Abnormal levels of other serum enzymes
CPT/HCPCS: 36415; 80053; 80061; 85025; G0103

== ENCOUNTER → 2022-12-20 10:02 | Outpatient (CLI) | payer MEDICARE, OTHER, SELFPAY ==
[2022-12-21 10:32] LABS: Fecal Immunochemical Test Negative (Negative)
== END ==
PROVIDERS: Family Provider Family Medicine; PCP Family Medicine; Referring Provider Family Medicine; Visit Provider Family Medicine
DX: Z12.11 Encounter for screening for malignant neoplasm of colon (principal)
CPT/HCPCS: 36415; 82274

== ENCOUNTER → 2023-04-20 08:17 | Outpatient (CLI) | payer MEDICARE, OTHER, SELFPAY ==
[2023-04-20 09:10] LABS: Cholesterol 234 mg/dL (140-199); HDL Cholesterol 38 mg/dL (40-60); LDL Cholesterol Calculated 174 mg/dL (<100); Triglycerides 112 mg/dL (35-150)
[2023-04-20 09:35] LABS: Prostate Specific Antigen Scrn 4.26 ng/mL (0.1-4.0)
== END ==
PROVIDERS: Family Provider Family Medicine; PCP Family Medicine; Referring Provider Family Medicine; Visit Provider Family Medicine
DX: E78.2 Mixed hyperlipidemia (principal); Z12.5 Encounter for screening for malignant neoplasm of prostate
CPT/HCPCS: 36415; 80061; G0103

== ENCOUNTER → 2024-02-17 16:54 | Outpatient (ROUT) | payer MEDICARE, OTHER, SELFPAY ==
[2024-02-17 18:02] LABS: COVID-19 CEPHEID 4-PLEX PCR POSITIVE (Negative); Influenza A - CEPHEID Flu A NEGATIVE (NEGATIVE); Influenza B - CEPHEID Flu B NEGATIVE (NEGATIVE); Respiratory Syncytial Virus Negative (Negative)
== END ==
PROVIDERS: Family Provider Family Medicine; PCP Family Medicine; Visit Provider Nurse Practitioner Family
DX: J02.9 Acute pharyngitis, unspecified (principal)
CPT/HCPCS: 0241U; 87070

== ENCOUNTER → 2024-02-19 14:11 | Outpatient (CLI) | payer MEDICARE, OTHER, SELFPAY ==
[2024-02-19 14:49] LABS: Appearance Urine UA CLEAR; Bilirubin Urine UA NEGATIVE (NEGATIVE); Color Urine UA YELLOW; Glucose Urine UA NEGATIVE (Negative); Ketones Urine UA NEGATIVE (NEGATIVE); Leukocyte Esterase Urine UA NEGATIVE (NEGATIVE); Nitrite Urine UA NEGATIVE (Negative); Occult Blood Urine UA NEGATIVE (Negative); Protein Urine UA NEGATIVE (Negative); Specific Gravity Urine UA 1.025 (1.000-1.035); Urine Volume 10mL (spun); Urobilinogen Urine UA 0.2 E.U./dL (0.2); pH Urine UA 5.5 (4.5-8.0)
[2024-02-19 14:50] LABS: Bacteria Urine None Seen; Culture Indicated Urine Cult Not Indicated; RBC Urine None Seen (0-5/HPF); Squamous Epithelial Cell Urine None Seen (0-5/HPF); WBC Urine None Seen (0-5/HPF)
== END ==
PROVIDERS: Family Provider Family Medicine; PCP Family Medicine; Referring Provider Family Medicine; Visit Provider Family Medicine
DX: R35.0 Frequency of micturition (principal)
CPT/HCPCS: 81001

== ENCOUNTER → 2024-03-20 07:26 | Outpatient (CLI) | payer MEDICARE, OTHER, SELFPAY ==
[2024-03-20 08:41] LABS: Add Manual Diff / Slide Review NO; Basophils Absolute Auto 0 /uL (0-100); Basophils Percent Auto 0.9 % (0-2); Eosinophils Absolute Auto 200 /uL (0-450); Eosinophils Percent Auto 3.4 % (2-4); Hematocrit 45.5 % (41-53); Hemoglobin 15.5 g/dL (13.5-17.5); Lymphocytes Absolute Auto 1500 /uL (1100-4500); Lymphocytes Percent Auto 31.8 % (25-40); Mean Corpuscular HGB Conc 34.1 % (30-36); Mean Corpuscular Hemoglobin 29.4 PG (26-34); Mean Corpuscular Volume 86.2 fL (80-100); Monocytes Absolute Auto 600 /uL (0-900); Neutrophils Absolute Auto 2400 /uL (1500-7000); Neutrophils Percent Auto 51.9 % (50-75); Platelet Count 207 X10^3/uL (150-400); Red Blood Cell Count 5.28 X10^6/uL (4.5-5.9); Red Cell Distribution Width 13.4 % (11.6-14.8); White Blood Cell Count 4.6 X10^3/uL (4.5-11.0)
[2024-03-20 09:06] LABS: HEMOLYSIS < 15 (0-50)
[2024-03-20 09:20] LABS: Alanine Aminotransferase 68 IU/L (<50); Albumin 4.6 g/dL (3.5-5.0); Albumin Globulin Ratio 1.5 (1.0-2.8); Alkaline Phosphatase 81 U/L (38-126); Aspartate Aminotransferase 46 IU/L (17-59); BUN Creatinine Ratio 19.4 (6-22); Blood Urea Nitrogen 18 mg/dL (9-20); Calcium 9.3 mg/dL (8.4-10.2); Carbon Dioxide 25 mmol/L (22-32); Chloride 108 mmol/L (98-107); Cholesterol 220 mg/dL (140-199); Estimated Glomerular Filt Rate > 60 mL/min (>60); Globulin 3.1 g/dL (1.7-4.1); Glucose 100 mg/dL (80-110); HDL Cholesterol 34 mg/dL (40-60); LDL Cholesterol Calculated 162 mg/dL (<100); Potassium 4.3 mmol/L (3.4-5.1); Sodium 140 mmol/L (137-145); Total Protein 7.7 g/dL (6.3-8.2); Triglycerides 119 mg/dL (35-150)
[2024-03-20 09:42] LABS: TSH w/ Reflex to FT4 0.79 uIU/mL (0.47-4.68)
[2024-03-20 14:30] LABS: Prostate Specific Antigen Scrn 3.36 ng/mL (0.1-4.0)
[2024-03-22 05:37] LABS: Apolipoprotein B 112 mg/dL (<90)
== END ==
PROVIDERS: Family Provider Family Medicine; PCP Family Medicine; Referring Provider Family Medicine; Visit Provider Family Medicine
DX: Z12.5 Encounter for screening for malignant neoplasm of prostate (principal); Z13.6 Encounter for screening for cardiovascular disorders; E78.2 Mixed hyperlipidemia; R74.8 Abnormal levels of other serum enzymes
CPT/HCPCS: 36415; 80053; 80061; 82172; 83695; 84443; 85025; G0103

== ENCOUNTER → 2024-04-01 10:14 | Outpatient (CLI) | payer MEDICARE, OTHER, SELFPAY ==
[2024-04-02 12:10] LABS: Fecal Immunochemical Test Negative (Negative)
== END ==
PROVIDERS: Family Provider Family Medicine; PCP Family Medicine; Referring Provider Family Medicine; Visit Provider Family Medicine
DX: Z12.11 Encounter for screening for malignant neoplasm of colon (principal)
CPT/HCPCS: 82274

== ENCOUNTER → 2024-07-05 07:46 | Outpatient (CLI) | payer MEDICARE, OTHER, SELFPAY ==
[2024-07-05 08:44] LABS: Alanine Aminotransferase 40 IU/L (<50); Albumin 4.4 g/dL (3.5-5.0); Albumin Globulin Ratio 1.6 (1.0-2.8); Alkaline Phosphatase 72 U/L (38-126); Aspartate Aminotransferase 36 IU/L (17-59); BUN Creatinine Ratio 19.3 (6-22); Bilirubin Total 0.8 mg/dL (0.2-1.3); Blood Urea Nitrogen 16 mg/dL (9-20); Calcium 9.6 mg/dL (8.4-10.2); Carbon Dioxide 23 mmol/L (22-32); Chloride 108 mmol/L (98-107); Estimated Glomerular Filt Rate > 60 mL/min (>60); Globulin 2.7 g/dL (1.7-4.1); Glucose 94 mg/dL (80-110); HEMOLYSIS 38 (0-50); Potassium 4.7 mmol/L (3.4-5.1); Sodium 138 mmol/L (137-145); Total Protein 7.1 g/dL (6.3-8.2)
== END ==
PROVIDERS: Family Provider Family Medicine; PCP Family Medicine; Referring Provider Family Medicine; Visit Provider Family Medicine
DX: R74.8 Abnormal levels of other serum enzymes (principal); E78.2 Mixed hyperlipidemia
CPT/HCPCS: 36415; 80053

== ENCOUNTER → 2025-04-21 15:45 | Outpatient (CLI) | payer MEDICARE, OTHER, SELFPAY | PROVIDERS: PCP Family Medicine; Referring Provider Family Medicine; Visit Provider Family Medicine | DX: Z12.11 Encounter for screening for malignant neoplasm of colon (principal) | CPT/HCPCS: 82274 ==

== ENCOUNTER → 2025-04-22 07:36 | Outpatient (CLI) | payer MEDICARE, OTHER, SELFPAY ==
[2025-04-22 08:50] LABS: Add Manual Diff / Slide Review NO; Hematocrit 45.6 % (41-53); Hemoglobin 15.7 g/dL (13.5-17.5); Lymphocytes Absolute Auto 1600 /uL (1100-4500); Mean Corpuscular HGB Conc 34.4 % (30-36); Mean Corpuscular Hemoglobin 30.0 PG (26-34); Mean Corpuscular Volume 87.2 fL (80-100); Platelet Count 208 X10^3/uL (150-400)
[2025-04-22 09:24] LABS: HEMOLYSIS < 15 (0-50)
[2025-04-22 09:31] LABS: Alanine Aminotransferase 80 IU/L (<50); Albumin 4.3 g/dL (3.5-5.0); Albumin Globulin Ratio 1.5 (1.0-2.8); Alkaline Phosphatase 71 U/L (38-126); Blood Urea Nitrogen 16 mg/dL (9-20); Calcium 9.5 mg/dL (8.4-10.2); Carbon Dioxide 23 mmol/L (22-32); Chloride 106 mmol/L (98-107); Cholesterol 227 mg/dL (140-199); Estimated Glomerular Filt Rate > 60 mL/min (>60); Globulin 2.9 g/dL (1.7-4.1); Glucose 97 mg/dL (70-99); HDL Cholesterol 33 mg/dL (40-60); Potassium 4.4 mmol/L (3.4-5.1); Sodium 138 mmol/L (137-145); Total Protein 7.2 g/dL (6.3-8.2); Triglycerides 134 mg/dL (35-150)
[2025-04-22 10:03] LABS: TSH w/ Reflex to FT4 0.88 uIU/mL (0.47-4.68)
== END ==
PROVIDERS: PCP Family Medicine; Referring Provider Family Medicine; Visit Provider Family Medicine
DX: M25.511 Pain in right shoulder (principal); E78.2 Mixed hyperlipidemia; Z12.5 Encounter for screening for malignant neoplasm of prostate; M25.512 Pain in left shoulder; R74.8 Abnormal levels of other serum enzymes; G89.29 Other chronic pain; Z00.00 Encounter for general adult medical examination without abnormal findings
CPT/HCPCS: 36415; 80053; 80061; 82172; 84443; 85025; G0103